=== PATIENT | male | born 1955 | race Caucasian/White ===

== ENCOUNTER 2024-05-26 08:54 | Inpatient (IN) ==
[2024-05-26] MEDS: SODIUM CHLORIDE 0.9% 500 ML IV ONE (09:48)
[2024-05-26] MEDS: dexAMETHasone**PF** 10 MG/ML VIAL IV ONE (09:48)
[2024-05-26] MEDS: KETOROLAC TROMETHAMINE 15 MG/ML VIAL IV ONE (09:48)
[2024-05-26] MEDS: MoRPHine SULFATE 4 MG/ML 1 ML CARP\\VIAL IV STA (09:49)
[2024-05-26] MEDS: ONDANSETRON INJ 2 MG/ML 2 ML VIAL IV STA (09:49)
--- NOTE | 2024-05-26 09:49 | Emergency Department Note ---
ED Provider Note History of Present Illness Chief Complaint: Hip Pain Stated Complaint: LEFT HIP PAIN Time Seen by Provider: 05/26/24 09:10 69-year-old male who presents to the emergency department for evaluation of lower back pain radiating through his left buttock and down the left leg to his calf. The patient reports that his pain started on Thursday. He saw his chiropractor yesterday without any relief of pain. The patient took ibuprofen 200 mg without relief. He also had some leftover tramadol from a dental procedure that also did not provide relief. The patient reports a history of chronic back issues. 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 He reports that healthcare receptionist usually will help with his back pain. The patient denies any recent injuries. He also denies any bladder/bowel incontinence, numbness of the inner thighs/pubic region or left foot drop. Patient denies any recent fevers or chills. The patient currently rates his discomfort a 9 out of 10. Home Medications Medication Instructions Recorded Confirmed Type ascorbic acid (vitamin C) 500 mg 500 mg PO DAILY 05/26/24 05/26/24 History tablet (Vitamin C) aspirin 81 mg tablet,delayed 81 mg PO DAILY 05/26/24 05/26/24 History release atenolol 50 mg-chlorthalidone 25 1 tab PO QAM 05/26/24 05/26/24 History mg tablet levothyroxine 88 mcg tablet 88 mcg PO DAILYBB 05/26/24 05/26/24 History losartan 100 mg tablet 100 mg PO QAM 05/26/24 05/26/24 History multivitamin 1 tab PO DAILY 05/26/24 05/26/24 History omeprazole 20 mg capsule,delayed 20 mg PO DAILYBB 05/26/24 05/26/24 History release vitamin E 268 mg (400 unit) capsule 268 mg PO DAILY 05/26/24 05/26/24 History Allergies Allergy/AdvReac Type Severity Reaction Status Date / Time No Known Allergies Allergy Unverified 05/26/24 10:50 Past Med/Surg History Problem List Bradycardia Hypertension Left lumbar radiculopathy Hypomagnesemia (Acute) Left lumbar radiculitis (Acute) Acute hyponatremia (Acute) Medical History No significant past medical history Surgical History No significant past surgical history Social History Smoking Status: Former smoker Hx Alcohol Use: Yes Alcohol type: beer Hx Substance Use: No Preferred Language: Stateless Communication Ability: Effective Flask Carrier Required: No marital status: Current Living Situation: Alone current occupational status: retired Feels Safe at Home: Yes Safety Concerns: Feels Safe At This Time Assistive Devices: None and Glasses Physical Exam Vital Signs Vital Signs - 24 hr 05/26/24 09:00 05/26/24 10:06 Temperature 36.5 C Temperature Source Oral Pulse Rate 58 L Pulse Rate [Right Finger] 53 L Pulse Rhythm [Right Finger] Regular Pulse Strength [Right Finger] Normal Respiratory Rate 20 12 Respiratory Effort / Characteristics Non-Labored Spontaneous Respiratory Depth Normal Normal Respiratory Pattern Regular Blood Pressure 158/73 H Blood Pressure [Right Arm] 135/71 Blood Pressure Mean 101 Blood Pressure Mean [Right Arm] 92 Pulse Oximetry 95 98 Oxygen Delivery Method Room Air Room Air Sepsis Recent Fever Within 48 Hours No Sepsis New/Unexplained Change in Mental Status N/A Sepsis Action Taken by Nursing No Action Required CONSTITUTIONAL: Healthy and well nourished. Patient appears in moderate discomfort. HEENT: No scleral icterus or conjunctival injection. NECK: Full active range of motion without discomfort. RESPIRATORY: Clear to auscultation bilaterally with no wheezing, crackles, rhonchi or stridor. CARDIOVASCULAR: Regular rate and rhythm with no murmurs, rubs or gallops. GASTROINTESTINAL: Bowel sounds present in all quadrants. Soft and nontender to palpation. MUSCULOSKELETAL: Patient has tenderness to palpation through the left lower lumbar region. Negative logroll of the hip. Positive straight leg raise with negative crossover exam. Ankle plantar/dorsiflexion strength is 5 out of 5 and symmetric bilaterally. Pedal pulses are intact. INTEGUMENTARY: No rash or other significant dermatologic conditions noted. HEMATOLOGIC: No ecchymosis or petechiae. PSYCHIATRIC: Positive affect. NEUROLOGIC: Left lower extremity is sensory intact with deep tendon reflexes 2+ and symmetric bilaterally. Course Course Patient history and physical exam were performed. Nurses notes were reviewed. Vital signs were reviewed. Given the patient's pain severity, I did recommend parenteral analgesics. IV access was established, and labs are drawn. The patient was administered a normal saline 500 cc bolus, and was also administered IV morphine, Toradol, Zofran and Decadron. An x-ray of the lumbar spine shows moderate degenerative changes without evidence for fractures or subluxations. There was a delay of approximately 40 minutes prior to getting x-rays, and upon reassessment, the patient did report significant reduction of his pain. Unfortunately, review of labs shows a sodium of 122. I did have our [employer]ruiter[employer] and pattern designer prior labs through [facility], showing that the patient has had a downtrending sodium over the past year and a half. He and had labs drawn almost 2 weeks ago with a sodium of 133, and the patient reports that his family doctor wanted him to have labs repeated again in 2 weeks. Remaining electrolytes are otherwise normal, including his potassium. Magnesium is slightly low at 1.4. An ECG was performed, showing PVCs without any ischemic changes, ST elevation or infarct. At this point, I explained to the patient my concern for his hyponatremia, and recommended that he be admitted for sodium repletion, and for further workup of the hyponatremia. The patient was initially resistant to the thought, but after explaining what hyponatremic and due to the body, he did agree to admission. Upon further questioning, the patient denies any recent vomiting, diarrhea, history of CHF, kidney or liver disease. A 2 view chest x-ray was also performed and was normal. The patient was administered magnesium sulfate for his hypomagnesemia. The case was then discussed with Dr. Long, ED attending physician, who agrees with admission. The case was then discussed with the [facility] hospitalist service, who has agreed with admission for further management. Please see their dictation for further treatment and final disposition. Administered Medications Aspirin (Aspirin 81 Mg Ectab) 81 mg PO DAILY [facility] Stop: 06/25/24 11:44 Last Admin: 05/26/24 12:32 Dose: 81 mg Documented By: CELINA Diclofenac Sodium (Diclofenac Sod 1% Gel 100 Gm Tube) 2 gm EXT TID ANIRUDH; Protocol Stop: 06/25/24 13:59 Last Admin: 05/26/24 14:47 Dose: Not Given Documented By: REY Sodium Chloride (Nss) 1,000 mls @ 80 mls/hr IV .[id number] ANIRUDH Stop: 06/25/24 11:44 Last Admin: 05/26/24 12:33 Dose: 80 mls/hr Documented By: CELINA Lidocaine (Lidocaine 5% 1 Patch) 1 patch TD QA ANIRUDH Stop: 06/25/24 11:44 Last Admin: 05/26/24 12:32 Dose: 1 patch Documented By: CELINA Losartan Potassium (Losartan Potassium 50 Mg Tab) 100 mg PO QAM ANIRUDH Stop: 06/25/24 11:44 Last Admin: 05/26/24 13:52 Dose: 100 mg Documented By: HIRAM Oxycodone HCl (Oxycodone Hcl Ir 5 Mg Tab (Immediate Release)) 5 mg PO Q4H PRN PRN Reason: Pain Stop: 06/09/24 11:39 Last Admin: 05/26/24 13:16 Dose: 5 mg Documented By: HIRAM Discontinued Medications Dexamethasone Sodium Phosphate (DexamethasonePf 10 Mg/Ml Vial) 10 mg IV NOW ONE Stop: 05/26/24 09:33 Last Admin: 05/26/24 09:48 Dose: 10 mg Documented By: CELINA Hydromorphone HCl (Hydromorphone Inj 0.5 Mg/0.5 Ml Syr) 0.5 mg IV NOW STA Stop: 05/26/24 12:06 Last Admin: 05/26/24 12:33 Dose: 0.5 mg Documented By: CELINA Sodium Chloride (Nss) 500 mls @ 999 mls/hr IV .Q31M ONE Stop: 05/26/24 10:02 Last Infusion: 05/26/24 10:18 Dose: Infused Documented By: Admin: 05/26/24 09:48 Dose: 999 mls/hr Documented By: CELINA Magnesium Sulfate/Dextrose (Magnesium Sulfate / D5w) 1 gm in 100 mls @ 200 mls/hr IV Q30M [facility] Stop: 05/26/24 11:53 Last Infusion: 05/26/24 12:27 Dose: Infused Documented By: Admin: 05/26/24 11:57 Dose: 200 mls/hr Documented By: Infusion: 05/26/24 11:57 Dose: Infused Documented By: Admin: 05/26/24 11:01 Dose: 200 mls/hr Documented By: CELINA Ketorolac Tromethamine (Ketorolac Tromethamine 15 Mg/Ml Vial) 10 mg IV NOW ONE Stop: 05/26/24 09:33 Last Admin: 05/26/24 09:48 Dose: 10 mg Documented By: CELINA Morphine Sulfate (Morphine Sulfate 4 Mg/Ml 1 Ml Carp\Vial) 4 mg IV NOW STA Stop: 05/26/24 09:33 Last Admin: 05/26/24 09:49 Dose: 4 mg Documented By: CELINA Ondansetron HCl (Ondansetron Inj 2 Mg/Ml 2 Ml Vial) 4 mg IV NOW STA Stop: 05/26/24 09:33 Last Admin: 05/26/24 09:49 Dose: 4 mg Documented By: CELINA Medical Decision Making Medical Records Attestation: I reviewed the patient's medical records. Home Medications was personally reviewed by me Laboratory Data Attestation: I reviewed the patient's lab results. 05/26/24 09:40 05/26/24 11:53 Lab Results 05/26/24 Range/Units 09:40 WBC 7.50 (4.8-10.8) K/ul RBC 4.56 L (4.70-6.10) M/uL Hgb 14.4 (14.0-18.0) g/dl Hct 38.7 L (42.0-52.0) % MCV 84.9 (80.0-100.0) fL MCH 31.6 (25.0-34.0) pg MCHC 37.2 H (32.0-36.0) g/dL RDW Std Deviation 35.5 L (36.4-46.3) fL RDW Coeff of Rajesh 11.5 (11.5-14.5) % Plt Count 209 (130-400) K/uL MPV 8.9 L (9.4-12.4) fL Immature Gran % (Auto) 0.7 % Neut % (Auto) 81.7 % Lymph % (Auto) 12.1 % Chase % (Auto) 4.9 % Eos % (Auto) 0.3 % Baso % (Auto) 0.3 % Neut # (Auto) 6.13 (1.40-6.50) K/uL Lymph # (Auto) 0.91 L (1.20-3.40) K/uL Chase # (Auto) 0.37 (0.11-0.59) K/uL Eos # (Auto) 0.02 (0.00-0.50) K/uL Baso # (Auto) 0.02 (0.00-0.20) K/uL Immature Gran # (Auto) 0.05 (0.01-0.20) K/uL Sodium 122 L (136-145) mmol/L Potassium 3.5 (3.5-5.1) mmol/L Chloride 87 L (98-107) mmol/L Carbon Dioxide 25 (21-32) mmol/L Anion Gap 10 (3-11) BUN 11 (6-23) mg/dl Creatinine 0.67 (0.6-1.4) mg/dl Est Cr Clr Drug Dosing 100.1 ml/min Est GFR ( Amer) 112.0 ml/min Est GFR (Non-Af Amer) 96.7 ml/min BUN/Creatinine Ratio 16.4 (10-20) Glucose 137 H (70-99(Fasting)) mg/dl Calcium 9.2 (8.6-10.3) mg/dl Phosphorus 2.9 (2.5-4.9) mg/dl Magnesium 1.4 L (1.7-2.4) mg/dl Total Bilirubin 1.0 (0.2-1.0) mg/dl AST 21 (13-39) U/L ALT 15 (7-52) U/L Alkaline Phosphatase 48 (34-104) U/L B-Natriuretic Peptide 113 H (0-100) pg/ml Total Protein 7.4 (6.0-8.3) gm/dl Albumin 4.2 (3.4-5.0) gm/dl Globulin 3.2 (2.5-4.0) gm/dl Albumin/Globulin Ratio 1.3 (0.9-2) Imaging Data Attestation: I personally reviewed and interpreted this imaging study as follows: My Impression: My interpretation of lumbar spine x-ray shows moderate degenerative changes without evidence for fractures or subluxations. My interpretation of the two-view chest x-ray does not show any pneumonia, pneumothorax or cardiomegaly. Radiologist reports were also reviewed with concurrence. Radiologist's Impression: Lumbar Spine X-Ray 05/26/24 09:33 LUMBAR SPINE 5 VIEWS CLINICAL HISTORY: Lumbar radiculopathy. FINDINGS: 5 views of the lumbar spine are obtained. No prior studies are available for comparison at the time of dictation. The skeletal structures are osteopenic. There is no radiographic evidence of fracture or malalignment. Vertebral body height and alignment are maintained. The transverse and spinous processes are intact. Anterior and lateral marginal osteophytes are seen throughout. There is no radiographic evidence of spondylolysis. There is moderate disc space narrowing at L5-S1. The remaining disc spaces appear maintained. Mild facet arthropathy is noted in the lower lumbar region. The visualized bony pelvis appears intact. There is a nonobstructed abdominal bowel gas pattern. Moderate fecal retention is seen throughout the colon. IMPRESSION: No acute bony abnormality is identified involving the lumbar spine. ACT 112: Negative or not required by law. Electronically signed by: Liang Au M.D. 05/26/2024 10:54 AM Chest X-Ray 05/26/24 10:26 XR chest 2V PA/lateral CLINICAL HISTORY: Hyponatremia TECHNIQUE: 2 views of the chest were obtained. Comparison: None available at the time of this dictation. FINDINGS: No lines and tubes are seen. The cardiomediastinal silhouette is normal. The lungs are clear. No evidence of pleural effusion or pneumothorax. IMPRESSION: No acute chest disease. ACT 112: Negative or not required by law. Electronically signed by: James Lamar M.D. 05/26/2024 10:54 AM ECG Data Attestation: I personally reviewed and interpreted this ECG as follows: Indication: + other (Hyponatremia) Rate (beats per minute): 64 Rhythm: + normal sinus ECG Intervals/blocks: + Normal QRS, + Normal QT and + Normal VA ECG [place]: + Normal ECG ST segments: + Normal ST segments ECG Findings: + PVCs MDM Narrative See ED Course section for further details of today's visit. The patient presents the emergency department with classic symptoms of left lumbar radiculitis. X-rays of the lumbar spine does show moderate changes, consistent with his current presentation. In order to provide adequate pain control, I did recommend parenteral administration. I also ordered laboratory studies, and on review, shows severe hyponatremia of 122. It is noted over the past 4-1/2 months that the patient has had a downtrending sodium level. Exact etiology for his hyponatremia is uncertain at this time. It is noted that the patient is asymptomatic other than his lumbar radicular symptoms. An ECG does show PVCs without any other evidence for ischemia or infarct. I did advise the patient that he would need slow sodium repletion, and recommended admission to further assess his hyponatremia. The patient was also hypomagnesemic, and was administered magnesium sulfate while in the emergency department. The patient did report adequate pain control for his lumbar radicular pain. Impression Acute hyponatremia, Left lumbar radiculitis, Hypomagnesemia Discharge Plan Visit Data Chief Complaint: Hip Pain Stated Complaint: LEFT HIP PAIN ED Provider: Sade Long ED Midlevel Provider: Aubrey Rausch Discharge Problem: Acute hyponatremia, Left lumbar radiculitis, Hypomagnesemia Discharge Instructions Interventions: ED Discharge Assessment Last Done: 05/26/24 13:35
[2024-05-26 10:03] LABS: Basophils # (auto) 0.02 K/uL (0.00-0.20); Basophils % (auto) 0.3 %; Eosinophils # (auto) 0.02 K/uL (0.00-0.50); Eosinophils % (auto) 0.3 %; Hematocrit (blood only) 38.7 % (42.0-52.0); Hemoglobin 14.4 g/dl (14.0-18.0); Immature Granulocytes # (auto) 0.05 K/uL (0.01-0.20); Immature Granulocytes % (auto) 0.7 %; Lymphocytes # (auto) 0.91 K/uL (1.20-3.40); Lymphocytes % (auto) 12.1 %; Mean Corpuscular Hemoglobin 31.6 pg (25.0-34.0); Mean Corpuscular Hgb Conc 37.2 g/dL (32.0-36.0); Mean Corpuscular Volume 84.9 fL (80.0-100.0); Mean Platelet Volume 8.9 fL (9.4-12.4); Monocytes # (auto) 0.37 K/uL (0.11-0.59); Monocytes % (auto) 4.9 %; Neutrophils # (auto) 6.13 K/uL (1.40-6.50); Neutrophils % (auto) 81.7 %; Platelet Count 209 K/uL (130-400); RDW Coefficient of Variation 11.5 % (11.5-14.5); RDW Standard Deviation 35.5 fL (36.4-46.3); Red Blood Count 4.56 M/uL (4.70-6.10)
[2024-05-26 10:16] LABS: Albumin Globulin Ratio 1.3 (0.9-2); Albumin Level 4.2 gm/dl (3.4-5.0); BUN Creatinine Ratio 16.4 (10-20); Calcium 9.2 mg/dl (8.6-10.3); Creatinine Clr Calc Pharmacy 100.1 ml/min; Est GFR (Non-African American) 96.7 ml/min; Globulin 3.2 gm/dl (2.5-4.0); Potassium 3.5 mmol/L (3.5-5.1); Total Protein 7.4 gm/dl (6.0-8.3)
[2024-05-26 10:46] LABS: Magnesium 1.4 mg/dl (1.7-2.4); Phosphorus 2.9 mg/dl (2.5-4.9)
--- NOTE | 2024-05-26 10:55 | XRay Report ---
XR chest 2V PA/lateral CLINICAL HISTORY: Hyponatremia TECHNIQUE: 2 views of the chest were obtained. Comparison: None available at the time of this dictation. FINDINGS: No lines and tubes are seen. The cardiomediastinal silhouette is normal. The lungs are clear. No evid ence of pleural effusion or pneumothorax. IMPRESSION: No acute chest disease. ACT 112: Negative or not required by law. Electronically signed by: James Lamar M.D. 05/26/2024 10:54 AM
--- NOTE | 2024-05-26 10:56 | XRay Report ---
LUMBAR SPINE 5 VIEWS CLINICAL HISTORY: Lumbar radiculopathy. FINDINGS: 5 views of the lumbar spine are obtained. No prior studies are available for comparison at the time of dictation. The skeletal structures are osteopenic. There is no radiographic evidence of fracture or malalignment. Vertebral body height and alignment are maintained. The transverse and spin ous processes are intact. Anterior and lateral marginal osteophytes are seen throughout. There is no radiographic evidence of spondylolysis. There is moderate disc space narrowing at L5-S1. The remainin g disc spaces appear maintained. Mild facet arthropathy is noted in the lower lumbar region. The visu alized bony pelvis appears intact. There is a nonobstructed abdominal bowel gas pattern. Moderate fec al retention is seen throughout the colon. IMPRESSION: No acute bony abnormality is identified involving the lumbar spine. ACT 112: Negative or not required by law. Electronically signed by: Liang Au M.D. 05/26/2024 10:54 AM
[2024-05-26] MEDS: MAGNESIUM SULFATE / D5W 1 GM/100 ML BAG IV SCH (11:01)
--- NOTE | 2024-05-26 11:04 | Electrocardiogram Report ---
Test Reason : Blood Pressure : / mmHG Vent. Rate : 064 BPM Atrial Rate : 064 BPM P-R Int : 174 ms QRS Dur : 110 ms QT Int : 462 ms P-R-T Axes : 077 071 055 degrees QTc Int : 476 ms Sinus rhythm with frequent Premature ventricular complexes Otherwise normal ECG No previous ECGs available Confirmed by Dustin Wynne ([id number]) on 05/26/2024 11:03:32 AM Referred By: REFERRED SELF Confirmed By:Dustin Wynne
--- NOTE | 2024-05-26 11:56 | History & Physical Report ---
Date of Service May 26, 2024 Assessment & Plan (1) Acute hyponatremia: (2) Hypomagnesemia: (3) Left lumbar radiculopathy: (4) Hypertension: (5) Bradycardia: Admission and Anticipated Discharge Date Admission Date: Hyponatremia- suspected due to chlorthalidone and may be some component of SIADH due to nausea from pain. Sodium 133 on 05/12, now 122. Will get serum osmolality, urine sodium, urine osmolality. hold chlorthalidone. Continue gentle ivf. Goal correction up to 128-130 over next 24 hrs. will check serum sodium q6hr to ensure appropriate correction. If worsening, will consult nephro. Might need discontinuation of chlorthalidone at discharge. Hypomagnesemia- repleted, recheck in am Left lumbar radiculopathy- No cauda equina symptoms/red flag signs. Xray did not show acute changes. Improved with medications in ED. Will have lidoderm patch, voltaren gel, heat pad, oxy and toradol prn. PT OT eval. If worsening, will need MRI LS spine for better evaluation. HTN- continue losartan. Hold chlorthalidone due to hyponatremia. Hold atenolol due to bradycardia. Bradycardia- Did not take atenolol today yet and HR in 50s. Will hold today and monitor on tele. Resume in am at lower dose with hold parameters. Hypothyroidism- continue synthroid. Recent TSH 4, T4 normal. Alcohol use- Drinks 3-4 keystone beer light daily. Declines withdrawal symptoms. Monitor. DVT ppx- sc lovenox Dispo- Admit to PCU on tele Full code Time spent- 75 mins History of Present Illness Chief Complaint: Left hip pain Primary Care Provider: Maria Teresa White MD 69 year old male with h/o HTN who presented to the ED for evaluation of left back pain radiating to left lower extremity. 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 This time pain started on Thursday and progressively got worse. He saw his chiropractor yesterday, initially felt better and got worse again. He took ibuprofen 400 mg and 800 mg followed by tramadol 50 mg x2 since then but no relief with pain. He had nausea and an episode of vomiting yesterday due to pain. He came to the ED for evaluation. He was given multiple pain medications in ED with improvement in pain. Work up showed sodium of 122 for which hospitalist service was consulted. His last BMP 05/12 showed sodium of 133 and TSH of 4. Currently denies N/V, fever, chills, chest pain, SOB. He feels fine. States he drinks 3-4 light beers daily but strongly denies alcohol withdrawal sy mptoms. Quit smoking 4 years back. Allergies Allergy/AdvReac Type Severity Reaction Status Date / Time No Known Allergies Allergy Unverified 05/26/24 10:50 Home Medications Medication Instructions Recorded Confirmed Type ascorbic acid (vitamin C) 500 mg 500 mg PO DAILY 05/26/24 05/26/24 History tablet (Vitamin C) aspirin 81 mg tablet,delayed 81 mg PO DAILY 05/26/24 05/26/24 History release atenolol 50 mg-chlorthalidone 25 1 tab PO QAM 05/26/24 05/26/24 History mg tablet levothyroxine 88 mcg tablet 88 mcg PO DAILYBB 05/26/24 05/26/24 History losartan 100 mg tablet 100 mg PO QAM 05/26/24 05/26/24 History multivitamin 1 tab PO DAILY 05/26/24 05/26/24 History omeprazole 20 mg capsule,delayed 20 mg PO DAILYBB 05/26/24 05/26/24 History release vitamin E 268 mg (400 unit) capsule 268 mg PO DAILY 05/26/24 05/26/24 History Past Med/Surg History Problem List (Updated 05/26/24 @ 11:58 by Stephan Connell MD) Bradycardia Hypertension Left lumbar radiculopathy Hypomagnesemia (Acute) Left lumbar radiculitis (Acute) Acute hyponatremia (Acute) Medical History No significant past medical history Surgical History No significant past surgical history Social History Smoking Status: Former smoker marital status: Current Living Situation: Spouse current occupational status: retired Feels Safe at Home: Yes Review of Systems Review of Systems: All systems reviewed & are unremarkable except as noted in Subjective Physical Exam Physical Exam: General: Sitting comfortably in bed, not in distress, on room air HEENT: EOMI, HANS, MMM Chest: Clear breath sounds bilaterally, no wheezes or crackles CVS: Bradycardic, normal heart sounds, no murmur Abdomen: Soft, non tender, not distended, normal bowel sounds Neuro: Awake, alert, oriented, conversing well, grossly intact Extremities: No cyanosis, clubbing or edema MSK: No tenderness on palpation of back, some tenderness in left buttock Results & Data Results & Data Vital Signs (Past 12 Hours) Vital Signs Temp Pulse Pulse Resp BP BP Pulse Ox 05/26/24 10:06 53 L 12 135/71 98 05/26/24 09:00 36.5 C 58 L 20 158/73 H 95 O2 Del Method 05/26/24 10:06 Room Air 05/26/24 09:00 Room Air Laboratory Results Short CBC 05/26/24 Range/Units 09:40 WBC 7.50 (4.8-10.8) K/ul Hgb 14.4 (14.0-18.0) g/dl Hct 38.7 L (42.0-52.0) % Plt Count 209 (130-400) K/uL BMP 05/26/24 09:40 Sodium 122 L Potassium 3.5 Chloride 87 L Carbon Dioxide 25 BUN 11 Creatinine 0.67 Glucose 137 H Calcium 9.2 Liver Function 05/26/24 Range/Units 09:40 Total Bilirubin 1.0 (0.2-1.0) mg/dl AST 21 (13-39) U/L ALT 15 (7-52) U/L Alkaline Phosphatase 48 (34-104) U/L Albumin 4.2 (3.4-5.0) gm/dl Diagnostic Findings Lumbar Spine X-Ray 05/26/24 09:33 LUMBAR SPINE 5 VIEWS CLINICAL HISTORY: Lumbar radiculopathy. FINDINGS: 5 views of the lumbar spine are obtained. No prior studies are available for comparison at the time of dictation. The skeletal structures are osteopenic. There is no radiographic evidence of fracture or malalignment. Vertebral body height and alignment are maintained. The transverse and spinous processes are intact. Anterior and lateral marginal osteophytes are seen throughout. There is no radiographic evidence of spondylolysis. There is moderate disc space narrowing at L5-S1. The remaining disc spaces appear maintained. Mild facet arthropathy is noted in the lower lumbar region. The visualized bony pelvis appears intact. There is a nonobstructed abdominal bowel gas pattern. Moderate fecal retention is seen throughout the colon. IMPRESSION: No acute bony abnormality is identified involving the lumbar spine. ACT 112: Negative or not required by law. Electronically signed by: Liang Au M.D. 05/26/2024 10:54 AM Chest X-Ray 05/26/24 10:26 XR chest 2V PA/lateral CLINICAL HISTORY: Hyponatremia TECHNIQUE: 2 views of the chest were obtained. Comparison: None available at the time of this dictation. FINDINGS: No lines and tubes are seen. The cardiomediastinal silhouette is normal. The lungs are clear. No evidence of pleural effusion or pneumothorax. IMPRESSION: No acute chest disease. ACT 112: Negative or not required by law. Electronically signed by: James Lamar M.D. 05/26/2024 10:54 AM
[2024-05-26 12:28] LABS: BUN Creatinine Ratio 15.4 (10-20); Calcium 8.8 mg/dl (8.6-10.3); Creatinine Clr Calc Pharmacy 103.2 ml/min; Est GFR (African American) 113.4 ml/min; Est GFR (Non-African American) 97.9 ml/min; Potassium 3.8 mmol/L (3.5-5.1)
[2024-05-26] MEDS: LIDOCAINE 5% 1 PATCH TD SCH (12:32)
[2024-05-26] MEDS: ASPIRIN 81 MG ECTAB PO SCH (12:32)
[2024-05-26] MEDS: HYDROmorphone INJ 0.5 MG/0.5 ML SYR IV STA ×2 (12:33→23:58)
[2024-05-26] MEDS: SODIUM CHLORIDE 0.9% 1,000 ML IV SCH (12:33)
[2024-05-26] MEDS: oxyCODONE HCL IR 5 MG TAB (IMMEDIATE RELEASE) PO PRN (13:16)
[2024-05-26] MEDS: LOSARTAN POTASSIUM 50 MG TAB PO SCH (13:52)
[2024-05-26 14:29] LABS: Albumin Level 4.2 gm/dl (3.4-5.0); Phosphorus 2.7 mg/dl (2.5-4.9)
[2024-05-26] MEDS: DICLOFENAC SOD 1% GEL 100 GM TUBE EXT SCH (14:47)
[2024-05-26] MEDS: KETOROLAC TROMETHAMINE 15 MG/ML VIAL IV PRN (17:14)
[2024-05-26 17:30] LABS: Appearance Urine Clear (Clear); Bacteria Urine Automated None Seen (None Seen); Bilirubin Urine Negative (Negative); Blood Urine Negative (Negative); Cast Urine Automated 0-2 /lpf (0-2); Color Urine Yellow; Epithelial Cell Urine Auto 0-2 /hpf (0-2); Glucose Urine UA Negative (Negative); Ketones Urine 3+ (Negative); Leukocyte Esterase Urine Negative (Negative); Nitrite Urine Negative (Negative); Protein Urine Trace (Negative); RBC Urine Automated 0-2 /hpf (0-2); Urobilinogen Urine Negative (Negative); WBC Urine Automated 0-5 /hpf (0-5); pH Urine 6.5 (4.5-7.5)
[2024-05-26 23:07] LABS: Albumin Level 3.8 gm/dl (3.4-5.0); Calcium 8.4 mg/dl (8.6-10.3)
[2024-05-26 23:13] LABS: BUN Creatinine Ratio 16.2 (10-20); Creatinine Clr Calc Pharmacy 86.4 ml/min; Est GFR (African American) 107.6 ml/min; Est GFR (Non-African American) 92.8 ml/min; Phosphorus 3.3 mg/dl (2.5-4.9)
--- OUTSIDE RECORDS SUMMARY | 2024-05-26 23:42 | External Medical Summary | Summary of Care ---
Author Name Unknown Organization [facility] Address [address] [facility] [address] Phone [phone] Care Team Providers Care Flower Planter Name Role Phone Maria Teresa White MD Primary Care Provide r Reason for Referral * Evaluate & Treat - Unlimited Visits (Within 10 days (routine)) - Authorized Specialty Diagnoses / Procedures Referred By Jordi guillermo Referred To Contact Podiatry Diagnoses Callus of foot Maria Teresa White MD [address] [place] [address] [place] [address] Referral ID Status Reason Start Date Expiration Date Visits Requested Visits Authorized [id number] Authorized Specialty Services Required 02/17/[phone] Question Answer Referral Priority Within 10 days (routine) Where should this appointment be scheduled? [facility] Which condition are you referring this patient for? General Podiatry/Other Comments calluses Reason for Visit * Reason Onset Date Comments Referral 02/17/2024 Encounter Details Date Type Department Care Team (Late st Contact Info) Description 02/17/2024 Telephone Family Medicine [address] [place] [id number] Maria Teresa White MD [address] [place] [address] [place] [address] Referral Allergies No known active allergiesdocumented as of this encounter (statuses as of 05/18/2024) Medications Medication Sig Dispensed Refills Start Date End Date Status MULTIVITAMIN PO TABS daily 0 10/10/2005 Acti ve ASPIRIN 81 MG PO TABS 1 TABLET DAILY 0 10/10/2005 Active VITAMIN C 500 MG PO TABS 1 TABLET DAILY 0 10/10/2005 Active VITAMIN E 400 UNIT PO TABS daily 0 10/10/2005 Active ibuprofen (MOTRIN) 200 MG Tablet Take 1 Tablet by mouth in the morning and 1 Tablet before bedtime. Active triamcinolone acetonide (ARISTOCORT) 0.1 % ointmentIndications:C ontact dermatitis, unspecified contact dermatitis type, unspecified trigger,Xerosis cutis Apply 2x daily to rash (or more if itchy) until resolved and then when flaring 80 g 03/30/2017 Active Vardenafil HCl 20 MG Oral TabletIndications:Imp otence of organic origin Take 1 Tablet by mouth daily as needed for Erectile Dysfunction. As directed. 90 Tablet 1 01/12/2023 Active Levothyroxine Sodium 88 MCG Oral Tablet (Levoxyl)Indications: Acquired hypothyroidism take 1 tablet by mouth daily AT LEAST 30 MINUTES PRIOR TO BRERAKFAST OR OTHER MEDICINE 90 Tablet 3 06/02/2023 Active Losartan Potassium 100 MG Oral Tablet (Cozaar)Indications:H TN, goal below 140/90 Take 1 Tablet by mouth in the morning. 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 ADVANCE DIRECTIVE INFORMATION 08/08/2005 Overview: No, Advance Directive brochure given to patient at prior appointment. Hypothyroidism 01/25/2003 documented as of this encounter (statuses as of 05/18/2024) Resolved Problems Problem Noted Date Diagnosed Date Resolved Date Aneurysm of ascending aorta without rupture 12/11/2022 05/12/2023 Mild aortic regurgitation 11/05/2022 Mild mitral regurgitation 11/05/2022 Myalgia 09/13/2013 11/19/2015 ENLARGED THORACIC AORTA 01/21/2007 11/0 11/2012 Elbow enthesopathy 10/13/2001 5 SKIN SENSATION DISTURB 11/19 Precordial pain 09/13/2012 BENIGN HYPERTENSION 10/05/20 09 Overview: Modified per HTN Taxonomy. BCC (basal cell carcinoma of skin) 12/24/2016 documented as of this encounter (statuses as of 05/18/2024) Immunizations Name Administration Dates Next Due COVID-19 mRNA, LNP-s, No Pre serve, 2-Dose Series (Pfizer) 09/02/2021,01/08/2021,12/18/2020 Pneumococcal Conjugate Vacc, 13 Valent (Prevnar) 06/14/2018 Pneumococcal Polysaccharide PPV23 (Pneumovax) 06/17/2019 Season Influenza, Quad, PF, Adjuvanted, 65+ Yrs, IM (FLUAD) 02/01/2021 Seasonal Influenza, PF, 6 M & above, IM , (FluLaval or Fluzone) 01/10/2019,12/14/2017 Seasonal Influenza, Quadriva lent Hd (Fluzone Hd) 11/11/2023,11/05/2022,09/13/2021 Seasonal Influenza, Quadriva lent, No Preserve, IM 11/19/2015 Seasonal Influenza, Split, I IV3, With Preserve, Inj 10/23/2014,09/13/2013,09/13/2012,08/28,08/29/2010,08/23/2009 Seasonal Influenza, Trivalen t, Adjuvanted, 65+ yrs 12/26/2019 TDAP (age 10 and older)(Boostrix) 01/10/2019 TDAP, Age 7 and older, IM (Adacel) 08/24/2008 Varicella Zoster Vaccine (Adult) 12/18/2017 Zoster Vaccine Recombinant (Shingrix) 03/02/2020 ,12/26/2019 documented as of this encounter Social History Tobacco Use Types Packs/Day Years Used Date Smoking Tobacco: Former Cigarettes Q uit: 01/28/1983 Smokeless Tobacco: Never Comments:2 pk/yr for 13 year s Alcohol Use Standard Drinks/Week Comments Yes 0 (1 standard drink = 0.6 oz pur e alcohol) 3 BEERS /DAY PHQ-2 Answer Date Recorded PHQ Adult Total Score 0 05/12/2023 Sex and Gender Information Value Date Recorded Sex Assigned at Not on file Gender Identity Not on file Sexual Orientation Not on file Job Start Date Occupation Industry Not on file Not on file Not on file documented as of this encounter Miscellaneous Notes * Telephone Encounter - Maria Teresa White MD - 02/17/2024 11:45 AM EDT Signed * Telephone Encounter - Radha Taylor OSA - 02/17/2024 9:57 AM EDT Due to new Medicare guidelines for Podiatry Routine Footcare & Mycotic Nail visits, we will need documented medical necessity for this patient's upcoming appointment on 03/21/24. Moving forward, a new referral will need to be placed every 6 months and must include the below information for Medicare to pay for services. Can you please assist with placing a new referral with the below outlined? 1) Can Patient perform routine footcare without assistance? (Y/N) 2)Does patient have a chronic condition? (Y/N) 3) Has patient been seen in the past 6 months? (Y/N) Please see the below link that will outline the appropriate/approved DX codes. Article - Billing and Coding: Routine Foot Care (G50211) (cms.gov) Thank you in advance. documented in this encounter Plan of Treatment Upcoming Encounters Date Type Department Care Team (Late st Contact Info) Description 06/06/2024 7:00 AM EDT Imaging Radiology [facility] [address] [facility] [place] [address] 06/16/2024 3:00 PM EDT Telemedicine Cardiothoracic Surg [facility] [address] [place] [address] Stevie Mcallister MD [address] [place] [address] 06/22/2024 8:40 AM EDT Office Visit Podiatry [facility] [address] [facility] [place] [address] Malathi Andres DPM [address] [place] [address] 06/22/2024 1:20 PM EDT Office Visit Dermatology [address] [place] [address] Katie Mckeon PA-C [address] [place] [address] [place] [address] 11/14/2024 8:00 AM EST Office Visit Family Medicine [address] [place] [phone] Rima Dewitt PA-C [address] [place] [address] [place] [address] Scheduled Procedures Name Priority Associated Diagnoses Date/Ti me COLONOSCOPY FLEXIBLE PROXIMA L DIAGNOSTIC Recall Encounter for screening colonoscopy Scheduled Referrals Name Type Priority Associated Diagnoses Orde r Schedule PODIATRY REFERRAL OP Referral Within 10 days (routine) Callus of foot Ordered: 02/17/2024 Health Maintenance Due Date Last Done Comments Cologuard 1998 Sigmoidoscopy 1998 Fecal Occult Blood Test 08/13/2007 08/13/2006 COVID-19 Vaccine ( season) 2023 09/02/2021, 01/08/2021, 12/18/2020 Depression Screening 05/12/2024 05/12/2023 Albumin/Creatinine Ratio 05/05/2025 05/05/2022 GFR 05/13/2025 05/13/2024, 04/30, 01/12/2023, Additional history exists TSH 05/13/2025 05/13/2024, 04/30, 05/05/2022, Additional history exists Colonoscopy 05/18/2027 05/18/2017, 04/30, 03/06/2014, Additional history exists Colorectal Cancer Screening 05/18/2027 DTaP,Tdap,and Td Vaccines (3 - Td or Tdap) 01/10/2029 01/10/2019, 08/24/2008 Lipid Panel 05/13/2029 05/13/2024, 04/30, 05/05/2022, Additional history exists AAA Screening Completed 01/18/2019 Pneumococcal Vaccine: 65+ Years Completed 06/17/2019, 06/14/2018 Zoster Vaccines Completed 03/02/2020, 12/01, 12/18/2017 Influenza Vaccine (FLU shot) Completed , 11/05/2022, 09/13/2021, Additional history exists GARDASIL-HPV IMMUNIZATION SERIES Aged Out No longer eligible based on patient's age to complete this topic Hepatitis B Aged Out No longer eligi ble based on patient's age to complete this topic MENINGOCOCCAL (MENACTRA/MENVEO) Aged Out No longer eligible based on patient's age to complete this topic documented as of this encounter Medical Devices Not on filedocumented as of this encounter Visit Diagnoses Diagnosis Callus of foot- Primary Corns and callosities documented in this encounter Care Teams Flower Planter Relationship Specialty Start Date End Date Maria Teresa White MD [address] [place] [address] [place] [id number] PCP - General Family Medicine 10/28/14 documented as of this encounter
--- OUTSIDE RECORDS SUMMARY | 2024-05-26 23:42 | External Medical Summary ---
Author Name Unknown Address Unknown Organization [id number]:[facility] [place] - [address] [facility] [place] [address] Laboratory Report Ordering Provider Test Date Status MARIA L TRUJILLO 05/13/2024 15:41:09 Final Observation Date Value Abnormality Reference (Units ) Status Triglyceride 05/13/2024 15:41:09 149 <=174 ( mg/dL) Final Triglyceride Reference Range s (mg/dL):
<150 Acceptable
150-174 Borderline high
175-499 High
>=500 Very high Cholesterol 05/13/2024 15:41:09 169 <200 (mg /dL) Final Total Cholesterol Reference Ranges (mg/dL):
<200 Desirable
200-239 Borderline high
>=240 High HDL 05/13/2024 15:41:09 56 >39 (mg/dL ) Final HDL Cholesterol Reference Ra nges (mg/dL):
>=60 High (Desirable)
<50 Low (Undesirable) For Females
<40 Low (Undesirable) For Males NON-HDL CHOLESTEROL 05/13/2024 15:41:09 113 <=159 (mg/dL) Final Non-HDL Cholesterol Referenc e Range (mg/dL):
<100 Target level for high risk ASCVD patient
<130 Optimal for general population
130-159 Near optimal for general population
160-189 Borderline High
190-219 High
>=220 Very High LDL, (calculated) 05/13/2024 15:41:09 83 <= 129 (mg/dL) Final LDL Cholesterol Reference Ra nges (mg/dL):
<70 Target level for high risk ASCVD patient
<100 Optimal for general population
100-129 Near optimal for general population
130-159 Borderline high
160-189 High
>=190 Very high Performing Location [facility] [place] - [address] [facility] [address]
--- OUTSIDE RECORDS SUMMARY | 2024-05-26 23:42 | External Medical Summary ---
Author Name Unknown Address Unknown Organization [id number]:[facility] - [address] [place] [address] Laboratory Report Ordering Provider Test Date Status DANIELAYOELMARIA L 05/13/2024 15:41:09 Final Observation Date Value Abnormality Reference (Units ) Status BUN 05/13/2024 15:41:09 17 6-20 (mg/dL) Final Creatinine 05/13/2024 15:41:09 0.9 0.6-1.2 (mg/dL) Final Glomerular filtration rate/1.73 sq M.predicted [Volume Rate/Area] in Serum, Plasma or Blood by Creatinine-based formula (CKD-EPI) 05/13/2024 15:41:09 >90 >=60 (mL/min) Final eGFR is calculated based on the CKD-EPI 2020 equation Sodium 05/13/2024 15:41:09 133 Below low normal 135 -146 (mmol/L) Final Potassium 05/13/2024 15:41:09 3.9 3.5-5.1 (m mol/L) Final Cl 05/13/2024 15:41:09 97 Below low normal 98- 107 (mmol/L) Final CO2 05/13/2024 15:41:09 24 22-32 (mmo l/L) Final Anion gap 05/13/2024 15:41:09 12 7-15 (mmol /L) Final Glucose 05/13/2024 15:41:09 95 70-120 (mg /dL) Final Calcium 05/13/2024 15:41:09 9.5 8.4-10.2 ( mg/dL) Final Performing Location [facility] - [address] [place] [address]
--- OUTSIDE RECORDS SUMMARY | 2024-05-26 23:42 | External Medical Summary ---
Author Name Unknown Address Unknown Organization K01:[facility] - [address] [place] [address] Laboratory Report Ordering Provider Test Date Status MARIA L TRUJILLO 05/13/2024 15:41:09 Final Observation Date Value Abnormality Reference (Units ) Status T4, Free 05/13/2024 15:41:09 1.7 0.9-1.7 (n g/dL) Final Performing Location [facility] - [address] [place] [address]
--- OUTSIDE RECORDS SUMMARY | 2024-05-26 23:42 | External Medical Summary | Summary of Care ---
Author Name Unknown Organization [facility] Address [address] [facility] [place] [address] Phone [phone] Care Team Providers Care Conference Specialist Name Role Phone Maria Teresa White MD Primary Care Provide r Reason for Visit * Reason Comments eRx-Medication Refill Encounter Details Date Type Department Care Team (Late st Contact Info) Description 04/18/2024 Refill Family Medicine [address] [place] [phone] Maria Teresa White MD [address] [place] [address] [place] [address] Encounter for long-term (current) use of medications*; HTN, goal below 140/90 Allergies No known active allergiesdocumented as of this encounter (statuses as of 04/28/2024) Medications Medication Sig Dispensed Refills Start Date End Date Status MULTIVITAMIN PO TABS daily 0 5 Active ASPIRIN 81 MG PO TABS 1 TABLET DAILY 0 5 Active VITAMIN C 500 MG PO TABS 1 TABLET DAILY 0 5 Active VITAMIN E 400 UNIT PO TABS daily 0 5 Active ibuprofen (MOTRIN) 200 MG Tablet Take 1 Tablet by mouth in the morning and 1 Tablet before bedtime. Active triamcinolone acetonide (ARISTOCORT) 0.1 % ointmentIndications :Contact dermatitis, unspecified contact dermatitis type, unspecified trigger,Xerosis cutis Apply 2x daily to rash (or more if itchy) until resolved and then when flaring 80 g 7 Active Vardenafil HCl 20 MG Oral TabletIndications:I mpotence of organic origin Take 1 Tablet by mouth daily as needed for Erectile Dysfunction. As directed. 90 Tablet 1 3 Active Levothyroxine Sodium 88 MCG Oral Tablet (Levoxyl)Indication s:Acquired hypothyroidism take 1 tablet by mouth daily AT LEAST 30 MINUTES PRIOR TO BRERAKFAST OR OTHER MEDICINE 90 Tablet 3 3 Active Losartan Potassium 100 MG Oral Tablet (Cozaar)Indications :HTN, goal below 140/90 Take 1 Tablet by mouth in the morning. 90 Tablet 3 4 Active Omeprazole 20 MG Oral Capsule Delayed Release (PriLOSEC)Indicatio ns:Dysphagia, unspecified type Take 1 Capsule by mouth in the morning. 1 hour before the first meal of the day. 90 Capsule 3 4 Active Atenolol-Chlorthali done 50-25 MG Oral TabletIndications:H TN, goal below 140/90 take 1 tablet by mouth every morning 90 Tablet 4 Active Atenolol-Chlorthali done 50-25 MG Oral TabletIndications:H TN, goal below 140/90 Take 1 Tablet by mouth in the morning. 90 Tablet 3 3 04/19/20 24 Discontinued documented as of this encounter (statuses as of 04/28/2024) Active Problems Problem Noted Date Diagnosed Date [...] as of this encounter (statuses as of 04/28/2024) Resolved Problems Problem Noted Date Diagnosed Date [...] as of this encounter (statuses as of 04/28/2024) Immunizations Name Administration Dates Next Due COVID-19 mRNA, LNP-s, No Pre serve, 2-Dose Series (Kodable) 09/02/2021,01/08/2021,12/18/2020 Pneumococcal Conjugate Vacc, 13 Valent (Prevnar) [...] encounter Miscellaneous Notes * Telephone Encounter - Sherita Foote - 04/28/2024 5:37 PM EDT Received message from [facility] regarding patient needing labs. Patient was notified. Successfully contacted patient and provided [facility] message. * Telephone Encounter - Lauro Banks [facility] - 04/19/2024 1:58 PM EDTSigned Prescriptions: Disp Refills Atenolol-Chlorthalidone 50-25 MG Oral Tabl*90 Tab*0 Sig: take 1 tablet by mouth every morning Authorizing Provider: MARIA TERESA WHITE Ordering User: LAURO BANKS * Telephone Encounter - Lauro Banks [facility] - 04/19/2024 1:42 PM EDT Provided 90 days supply with 0 refill(s) until upcoming appointment. Per refill protocol patient should have BMP on file within past year. Reviewed AMP report, Care Gaps/Health Maintenance, medications list, and for any routine labs typically ordered for this patient. Lab orders placed. Please contact patient to advise of labs ordered for blood draw. Recommend patient to fast if able for labs. Patient may still have water and regular medications. Advise to obtain labs before requesting the next refill. Thank You, Lauro Banks, Pharm-D Clinical Pharmacist [facility] ([facility]) (Formerly [facility]) [phone] 04/19/2024, 1:57 PM documented in this encounter Plan of Treatment Upcoming Encounters Date Type Department Care Team (Late st Contact Info) Description 05/13/2024 3:20 PM EDT Office Visit Family Medicine [address] [place] [address] Maria Teresa White MD [address] [place] [address] [place] [address] 05/25/2024 10:40 AM EDT Office Visit Dermatology [address] [place] [address] Katie Mckeon PA-C [address] [place] [address] [place] [address] 06/06/2024 7:00 AM EDT Imaging Radiology [facility] [address] [place] [address] 06/16/2024 3:00 PM EDT Telemedicine Cardiothoracic Surg [facility] [address] [place] [address] Stevie Mcallister MD [address] [facility] [place] [address] 06/22/2024 8:40 AM EDT Office Visit Podiatry [address] [place] [address] Malathi Andres, DPHumza [address] [place] [address] Scheduled Orders Name Type Priority Associated Diagnoses Orde r Schedule BASIC METABOLIC PANEL Lab Routine Encounter for long-term (current) use of medications Expected: 04/20/2024 (Approximate), Expires: 04/19/2025 TSH WITH FREE T4 IF INDICATED Lab Routine Encounter for long-term (current) use of medications Expected: 04/20/2024 (Approximate), Expires: 04/19/2025 VITAMIN B12 Lab Routine Encounter for long-term (current) use of medications Expected: 04/20/2024 (Approximate), Expires: 04/19/2025 LIPID PANEL WITH DIRECT LDL IF TG IS HIGH Lab Routine Encounter for long-term (current) use of medications Expected: 04/20/2024 (Approximate), Expires: 04/19/2025 MAGNESIUM Lab Routine Encounter for long-term (current) use of medications Expected: 04/20/2024 (Approximate), Expires: 04/19/2025 Scheduled Procedures Name Priority Associated Diagnoses Date/Ti me COLONOSCOPY FLEXIBLE PROXIMA L DIAGNOSTIC Recall Encounter for screening colonoscopy Health Maintenance Due Date Last Done Comments Cologuard 1998 Sigmoidoscopy 1998 Fecal Occult Blood Test 08/13/2007 08/13/2006 COVID-19 Vaccine ( season) 2023 09/02/2021, 01/08/2021, 12/18/2020 Depression Screening 05/12/2024 05/12/2023 GFR 05/12/2024 05/12/2023, 12/31, 12/18/2022, Additional history exists TSH 05/12/2024 05/12/2023, 06/0 04/2022, 02/01/2021, Additional history exists Albumin/Creatinine Ratio 05/05/2025 05/05/2022 Colonoscopy 05/18/2027 05/18/2017, 04/30, 03/06/2014, Additional history exists Colorectal Cancer Screening 05/18/2027 Lipid Panel 05/12/2028 05/12/2023, 06/0 04/2022, 02/01/2021, Additional history exists DTaP,Tdap,and Td Vaccines (3 - Td or Tdap) 01/10/2029 01/10/2019, 08/24/2008 AAA Screening Completed 01/18/2019 Pneumococcal Vaccine: 65+ [...] as of this encounter Visit Diagnoses Diagnosis Encounter for long-term (current) use of medications- Primary Encounter for long-term (current) use of other medications HTN, goal below 140/90 Unspecified essential hypertension documented in this encounter Care Teams Conference Specialist Relationship Specialty Start Date End Date Maria Teresa White MD [address] [place] [address] [place] [address] PCP - General Family Medicine 10/28/14 documented as of this encounter
--- OUTSIDE RECORDS SUMMARY | 2024-05-26 23:42 | External Medical Summary | Summary of Care ---
Author Name Unknown Organization [facility] Address [address] [facility] [address] [address] [place] [address] Phone [phone] Care Team Providers Care Tube Pusher Name Role Phone Maria Teresa White MD Primary Care Provide r Reason for Visit * Reason Comments Re-Check Encounter Details Date Type Department Care Team (Latest Contact Info) Description 05/13/2024 3:20 PM EDT Office Visit Family Medicine [address] [place] [address] Maria Teresa White MD [address] [place] [address] [place] [address] HTN, GOAL BELOW 140/90*; Dyslipidemia, goal LDL below 130; Aneurysm of ascending aorta without rupture (HCC); Acquired hypothyroidism Allergies No known active allergiesdocumented as of this encounter (statuses as of 05/13/2024) Medications Medication Sig Dispensed Refills Start Date [...] the morning. 90 Tablet 3 01/04/2024 Active Omeprazole 20 MG Oral Capsule Delayed Release (PriLOSEC)Indications :Dysphagia, unspecified type Take 1 Capsule by mouth in the morning. 1 hour before the first meal of the day. 90 Capsule 3 03/15/2024 Active Atenolol-Chlorthalido ne 50-25 MG Oral TabletIndications:HTN , goal below 140/90 take 1 tablet by mouth every morning 90 Tablet 04/19/2024 Active documented as of this encounter (statuses as of 05/13/2024) Active Problems Problem Noted Date Diagnosed Date [...] as of this encounter (statuses as of 05/13/2024) Resolved Problems Problem Noted Date Diagnosed Date [...] as of this encounter (statuses as of 05/13/2024) Immunizations Name Administration Dates Next Due COVID-19 mRNA, LNP-s, No Pre serve, 2-Dose Series ([employer]) 09/02/2021,01/08/2021,12/18/2020 Pneumococcal Conjugate Vacc, 13 Valent (Prevnar) [...] Cigarettes Q uit: 01/28/1983 Smokeless Tobacco: Never Tobacco Cessation:Counseling Given: Not Answered Comments:2 pk/yr for 15 years Alcohol Use Standard Drinks/Week Comments Yes 0 [...] on file documented as of this encounter Last Filed Vital Signs Vital Sign Reading Time Taken Comments Blood Pressure 126/70 05/13/2024 3:08 PM EDT Pulse 57 05/13/2024 3:08 PM EDT Temperature 36 C (96.8 F) 05/13/2024 3:08 PM EDT Respiratory Rate 16 05/13/2024 3:08 PM EDT Oxygen Saturation - - Inhaled Oxygen Concentration - - Weight 66.3 kg (146 lb 2 oz) 05/13/2024 3:08 PM EDT Height 175.3 cm (5' 9") 05/13/2024 3:08 PM EDT Body Mass Index 21.58 05/13/2024 3:08 PM EDT documented in this encounter Progress Notes * Maria Teresa White MD - 05/13/2024 3:22 PM EDT Subjective: Amauri Patel is a 69 year old male. Chief Complaint Patient presents with Re-Check HPI: Brief Clinical History Mr. Patel is a 69 year old man last seen in Family Medicine 4 months ago (12-15-23). He is not due for eval of any conditions. Has not been checking blood pressure for a while since his readings had been doing good for a long time. Was seen here in November with dysphagia. Was put on omeprazole and symptoms resolved after one weekso he quit taking it. Is not having any issues now. Blood pressure medications were adjusted last year for bradycardia. Following with cardiology. Is scheduled for a follow-up chest CT 06/06/24 to follow-up on ascending aorta. Results for orders placed or performed in visit on 06/03/23 SURGICAL PATHOLOGY Result Value Ref Range Final Diagnosis A. Skin, L preauricular region, shave: Actinic keratosis. Clinical History See Order Comments Order Comments 1A. L preauricular region-1.2x0.5cm yellow-white hyperkeratotic plaque. hAK vs SCC Gross Description A. Skin. shave Received in formalin with a container labeled with "Amauri A Chronister", "[id number]", "1955" and " left preauricular region". Received is a 0.8 x 0.7 cm skin shave. The skin surface is noyola-white slightly raised and firm. The underlying tissue is inked. The specimen is bisected and submitted in cassette A1. Gross By: MR Sign Out Location Pathologist sign out performed at [facility] ([facility] [place] [address]. Photographic images and diagrams represent diaz findings in this case; they are not intended to replace a complete review of the final diagnostic report. The following statement applies to Flow Cytometry, Histology, In situ Hybridization Assays and Molecular Genetics. This test was developed and performed at [facility] and its performance characteristics determined by [facility]. It has not been cleared or approved by the U.S. Food and Drug Administration. The FDA has determined that such clearance or approval is not necessary. This test is used for clinical purposes. It should not be regarded as investigationalor for research. Special stains, including histochemical stains, and studies using immunologic and SAMANTHA methodology (where applicable) are performed with appropriate positive and negative control reactions. PHM: Patient Active Problem List Diagnosis Hypothyroidism ADVANCE DIRECTIVE INFORMATION HTN, GOAL BELOW 140/90 Thoracic aortic aneurysm without rupture (HCC) Dyslipidemia, goal LDL below 130 Hx of nonmelanoma skin cancer AK (actinic keratosis) Dupuytren's contracture of both hands Current Outpatient Medications Medication Sig Dispense Refill MULTIVITAMIN PO TABS daily 0 ASPIRIN 81 MG PO TABS 1 TABLET DAILY 0 VITAMIN C 500 MG PO TABS 1 TABLET DAILY 0 VITAMIN E 400 UNIT PO TABS daily 0 ibuprofen (MOTRIN) 200 MG Tablet Take 1 Tablet by mouth in the morning and 1 Tablet before bedtime. triamcinolone acetonide (ARISTOCORT) 0.1 % ointment Apply 2x daily to rash (or more if itchy) untilresolved and then when flaring 80 g 0 Vardenafil HCl 20 MG Oral Tablet Take 1 Tablet by mouth daily as needed for Erectile Dysfunction. As directed. 90 Tablet 1 Levothyroxine Sodium 88 MCG Oral Tablet (Levoxyl) take 1 tablet by mouth daily AT LEAST 30 MINUTES PRIOR TO BRERAKFAST OR OTHER MEDICINE 90 Tablet 3 Losartan Potassium 100 MG Oral Tablet (Cozaar) Take 1 Tablet by mouth in the morning. 90 Tablet 3 Omeprazole 20 MG Oral Capsule Delayed Release (PriLOSEC) Take 1 Capsule by mouth in the morning. 1 hour before the first meal of the day. 90 Capsule 3 Atenolol-Chlorthalidone 50-25 MG Oral Tablet take 1 tablet by mouth every morning 90 Tablet 0 No current facility-administered medications for this visit. Past Medical History: Diagnosis Date Aortic aneurysm (HCC) Dr. Darryl Londono BCC (basal cell carcinoma of skin) HTN, goal below 140/90 Hypothyroidism Past Surgical History: Procedure Laterality Date COLONOSCOPY 02/2004 no polyps COLONOSCOPY, DIAGNOSTIC (RECTUM) 03/06/2014 COLONOSCOPY FLEXIBLE PROXIMAL DIAGNOSTIC performed by Rony Block MD at [facility] COLONOSCOPY, DIAGNOSTIC (RECTUM) 05/18/2017 diverticulosis, repeat 10 yrs/COLONOSCOPY FLEXIBLE PROXIMAL DIAGNOSTIC performed by Rony Block MD at [facility] NONE 10/14/05 LI at [facility] by Dr. Piña REMOVAL OF APPENDIX REMOVAL OF KNEE CYST (AGUILAR'S) REPAIR INITIAL INGUINAL HERNIA REDUCIBLE AGE 5 OR MORE Social History Socioeconomic History Marital status: Single Spouse name: Not on file Number of children: Not on file Years of education: Not on file Highest education level: Not on file Occupational History Not on file Tobacco Use Smoking status: Former Current packs/day: 0.00 Types: Cigarettes Quit date: 01/28/1983 Years since quittin.3 Smokeless tobacco: Never Tobacco comments: 2 pk/yr for 15 years Vaping Use Vaping status: Never Used Substance and Sexual Activity Alcohol use: Yes Comment: 3 BEERS /DAY Drug use: No Sexual activity: Yes Partners: Female Other Topics Concern Not on file Social History Narrative Not on file Social Determinants of Health Financial Resource Strain: Not on file Food Insecurity: Not on file Transportation Needs: Not on file Physical Activity: Not on file Stress: Not on file Social Connections: Not on file Intimate Partner Violence: Not on file Housing Stability: Not on file Review of patient's allergies indicates: No Known Allergies Objective: BP 126/70 | Pulse 57 | Temp 36 C (96.8 F) (Tympanic) | Resp 16 | Ht 1.753 m (5' 9") | Wt 66.3 kg (146 lb 2 oz) | BMI 21.58 kg/m | BSA 1.8 m Physical Exam: General: alert, healthy, no distress, well nourished, and well developed Head: Normocephalic, No masses, lesions, tenderness or abnormalities Eye Exam: PERRLA, extraocular movements intact, conjunctiva are pink and non- injected, sclera clear Ears: External ears normal, Canals clear, TM's Normal Nose: no mucosal erythema, no mucosal edema, no purulent discharge Oropharynx: no exudate, no erythema, lips, buccal mucosa, and tongue normal, and mucous membranes are moist Neck: supple, no adenopathy, no bruits Heart: regular rate & rhythm, no murmur, and no gallops Lungs: chest symmetric with normal AP diameter, no chest deformities noted, no chest wall tenderness, lungs clear to auscultation Extremities: no edema, no clubbing, no cyanosis Neuro Exam: alert & oriented x 3 with fluent speech, no focal motor/sensory deficits, gait normal Extensive ROS Constitutional (f/c/wt/vision/hearing): Negative Resp (cough/sob/kong): Negative CV (cp/palp/fluttering/diaphoresis/kong/pnd):see above hpi GI (n/v/d/hrtburn): Negative Endo (hair/cold or heat intol/ 3 p's): Negative Neuro (shaking/weak/fatigu/parasthesi/): Negative Skin (rash/easy bruis/xerosis): Negative Psy (si/hi/halluc/): Negative (nocturia/hesit/drib/sexual review): Negative Lymph (swollen glands/b sx's/: Negative ASSESSMENT: HTN, GOAL BELOW 140/90 (Primary)--controlled with atenolol-chlorthalidone 50/25 mg and losartan 100mg daily. Atenolol was reduced 1 year ago due to bradycardia - BASIC METABOLIC PANEL; Future; Expected date: 05/13/2024 Dyslipidemia, goal LDL below 130--check labs - LIPID PANEL WITH DIRECT LDL IF TG IS HIGH; Future; Expected date: 05/13/2024 Aneurysm of ascending aorta without rupture (HCC)--following with CT surgery. Having chest CT 06/06/24. Acquired hypothyroidism--controlled with levothyroxine 88 mcg daily - TSH WITH FREE T4 IF INDICATED; Future; Expected date: 05/13/2024 Follow Up: Return in about 6 months (around 11/12/2024) for Clinic Visit. | For: Clinic Visit PLAN: Continue present medication(s): Schedule labs: BMP, TSH, and lipid panel Patient education: follow-up for chest CT as scheduled. Call or return if dysphagia returns. Resolved with 1 week of PPI and has not returned. Follow up: in 6 month(s). Maria Teresa White MD documented in this encounter Nursing Notes * Aide Rangel LPN - 05/13/2024 3:08 PM EDT 6 month recheck documented in this encounter Plan of Treatment Upcoming Encounters Date Type Department Care Team (Late st Contact Info) Description 05/13/2024 4:00 PM EDT Laboratory Laboratory [address] [place] [phone] [facility] [address] [place] [address] HTN, GOAL BELOW 140/90; Dyslipidemia, goal LDL below 130; Acquired hypothyroidism 06/06/2024 7:00 AM EDT Imaging Radiology [facility] [address] [facility] [place] [address] 06/16/2024 3:00 PM EDT Telemedicine Cardiothoracic Surg [facility] [address] [place] [address] Stevie Mcallister MD [address] [place] [address] 06/22/2024 8:40 AM EDT Office Visit Podiatry [facility] [address] [place] [address] Malathi Andres, DPM [address] [place] [address] 06/22/2024 1:20 PM EDT Office Visit Dermatology [address] [place] [address] Katie Mckeon PA-C [address] [place] [address] [place] [address] 11/14/2024 8:00 AM EST Office Visit Family Medicine [address] [place] [phone] Rima Dewitt PA-C [address] [place] [address] [place] [address] Pending Results Name Type Priority Associated Diagnoses Date /Time BASIC METABOLIC PANEL Lab Routine HTN, GOAL BELOW 140/90 05/13/2024 3:41 PM EDT LIPID PANEL WITH DIRECT LDL IF TG IS HIGH Lab Routine Dyslipidemia, goal LDL below 130 05/13/2024 3:41 PM EDT TSH WITH FREE T4 IF INDICATED Lab Routine Acquired hypothyroidism 05/13/2024 3:41 PM EDT Scheduled Orders Name Type Priority Associated Diagnoses Orde r Schedule BASIC METABOLIC PANEL Lab Routine HTN, GOAL BELOW 140/90 Expected: 05/13/2024 (Approximate), Expires: 05/13/2025 LIPID PANEL WITH DIRECT LDL IF TG IS HIGH Lab Routine Dyslipidemia, goal LDL below 130 Expected: 05/13/2024, Expires: 05/13/2025 TSH WITH FREE T4 IF INDICATED Lab Routine Acquired hypothyroidism Expected: 05/13/2024 (Approximate), Expires: 05/13/2025 Scheduled Procedures Name Priority Associated Diagnoses Date/Ti [...] Cancer Screening 05/18/2027 Lipid Panel 05/12/2028 05/12/2023, 060 04/2022, 02/01/2021, Additional history exists DTaP,Tdap,and Td [...] as of this encounter Visit Diagnoses Diagnosis HTN, GOAL BELOW 140/90- Primary Unspecified essential hypertension Dyslipidemia, goal LDL below 130 Other and unspecified hyperlipidemia Aneurysm of ascending aorta without rupture (HCC) Acquired hypothyroidism Unspecified hypothyroidism HTN, GOAL BELOW 140/90 Unspecified essential hypertension Dyslipidemia, goal LDL below 130 Other and unspecified hyperlipidemia Acquired hypothyroidism Unspecified hypothyroidism documented in this encounter Care Teams Tube Pusher Relationship Specialty Start Date End Date Maria Teresa White MD [address] [place] [address] [place] [phone] PCP - General Family Medicine 10/28/14 documented as of this encounter
--- OUTSIDE RECORDS SUMMARY | 2024-05-26 23:42 | External Medical Summary | Summary of Care ---
Author Name Unknown Organization [facility] Address [address] [facility] [place] [address] Phone [phone] Care Team Providers Care Gasoline Attendant Name Role Phone Maria Teresa White MD Primary Care Provide r Reason for Visit * Reason Comments Outpatient Testing Encounter Details Date Type Department Care Team (Late st Contact Info) Description 05/13/2024 4:00 PM EDT Laboratory Laboratory [address] [place] [phone] [facility] Lab [address] [place] [address] HTN, GOAL BELOW 140/90; Dyslipidemia, goal LDL below 130; Acquired hypothyroidism Allergies No known active allergiesdocumented [...] mRNA, LNP-s, No Pre serve, 2-Dose Series ([employer]) 09/02/2021,01/08/2021,12/18/2020 Pneumococcal Conjugate Vacc, 13 Valent (Prevnar) [...] on file documented as of this encounter Plan of Treatment Upcoming Encounters Date Type Department Care Team (Late st Contact Info) Description 06/06/2024 7:00 AM EDT Imaging Radiology [address] [facility] [place] [address] 06/16/2024 3:00 PM EDT Telemedicine Cardiothoracic Surg [facility] [address] [place] [address] Stevie Mcallister MD [address] [place] [address] 06/22/2024 8:40 AM EDT Office Visit Podiatry [address] [place] [address] Malathi Andres, DPHumza [address] [place] [address] 06/22/2024 1:20 PM EDT Office Visit Dermatology [address] [place] [address] Katie Mckeon PA-C [address] [place] [address] [place] [address] 11/14/2024 8:00 AM EST Office Visit Family Medicine [address] [place] [phone] Rima Dewitt PA-C [address] [place] [address] [place] [address] Pending Results Name Type Priority Associated Diagnoses Date /Time BASIC METABOLIC PANEL Lab Routine HTN, GOAL BELOW 140/90 05/13/2024 3:41 PM EDT LIPID PANEL WITH DIRECT LDL IF TG IS HIGH Lab Routine Dyslipidemia, goal LDL below 130 05/13/2024 3:41 PM EDT TSH WITH FREE T4 IF INDICATED Lab Routine Acquired hypothyroidism 05/13/2024 3:41 PM EDT Scheduled Procedures Name Priority Associated Diagnoses Date/Ti [...] encounter Visit Diagnoses Diagnosis HTN, GOAL BELOW 140/90 Unspecified essential hypertension Dyslipidemia, goal LDL below 130 Other and unspecified hyperlipidemia Acquired hypothyroidism Unspecified hypothyroidism documented in this encounter Care Teams Gasoline Attendant Relationship Specialty Start Date End Date Maria Teresa White MD [address] [place] [address] [place] [address] PCP - General Family Medicine 10/28/14 documented as of this encounter
--- OUTSIDE RECORDS SUMMARY | 2024-05-26 23:42 | External Medical Summary | Summary of Care ---
Author Name Unknown Organization [facility] Address [address] [facility] [place] [address] Phone [phone] Care Team Providers Care Central Supply Tech Name Role Phone Maria Teresa White MD Primary Care Provide r Reason for Visit * Reason Onset Date Comments Test Results Lab 05/19/2024 Encounter Details Date Type Department Care Team (Late st Contact Info) Description 05/19/2024 Telephone Family [address] [place] [address] Philippe De La Garza [address] [place] [address] Test Results Lab Allergies No known active allergiesdocumented as of this encounter (statuses as of 05/19/2024) Medications Medication Sig Dispensed Refills Start Date [...] as of this encounter (statuses as of 05/19/2024) Active Problems Problem Noted Date Diagnosed Date [...] as of this encounter (statuses as of 05/19/2024) Resolved Problems Problem Noted Date Diagnosed Date [...] as of this encounter (statuses as of 05/19/2024) Immunizations Name Administration Dates Next Due COVID-19 mRNA, LNP-s, No Pre serve, 2-Dose Series ([employer]) 09/02/2021,01/08/2021,12/18/2020 Pneumococcal Conjugate Vacc, 13 Valent (Prevnar) [...] encounter Miscellaneous Notes * Telephone Encounter - Philippe De La Garza CRNP - 05/19/2024 12:10 PM EDT Labs reviewed. TSH slightly elevated. Will plan to repeat in 6 weeks. Otherwise labs are stable. documented in this encounter Plan of Treatment Upcoming Encounters Date Type Department Care Team (Late st Contact Info) Description 06/06/2024 7:00 AM EDT Imaging [address]iology [address] [address] 06/16/2024 3:00 PM EDT Telemedicine Cardiothoracic Surg [facility] [address] [place] [address] Stevie Mcallister MD [address] [place] [address] 06/22/2024 8:40 AM EDT Office Visit Podiatry [address] [place] [address] Malathi Andres DPM [address] [facility] [place] [address] 06/22/2024 1:20 PM EDT Office Visit Dermatology [address] [place] [address] Katie Mckeon PA-C [address] [place] [address] [place] [address] 11/14/2024 8:00 AM EST Office Visit Family Medicine [address] [place] [phone] Rima Dewitt PA-C [address] [place] [address] [place] [address] Scheduled Orders Name Type Priority Associated Diagnoses Orde r Schedule TSH Lab Routine Acquired hypothyroidism Expected: 06/30/2024 (Approximate), Expires: 05/19/2025 Scheduled Procedures Name Priority Associated Diagnoses Date/Ti [...] as of this encounter Visit Diagnoses Diagnosis Acquired hypothyroidism- Primary Unspecified hypothyroidism documented in this encounter Care Teams Central Supply Tech Relationship Specialty Start Date End Date Maria Teresa White MD [address] [place] [address] [place] [address] PCP - General Family Medicine 10/28/14 documented as of this encounter
--- OUTSIDE RECORDS SUMMARY | 2024-05-26 23:42 | External Medical Summary ---
Author Name Unknown Address Unknown Organization K01:[facility] [address] [place] [address] Laboratory Report Ordering Provider Test Date Status MARIA L TRUJILLO 05/13/2024 15:41:09 Final Observation Date Value Abnormality Reference (Units ) Status TSH 05/13/2024 15:41:09 4.43 Above high normal 0. 27-4.20 (uIU/mL) Final Performing Location [facility] [place] [address] [place] [address]
--- OUTSIDE RECORDS SUMMARY | 2024-05-26 23:42 | External Medical Summary | Summary of Care ---
Author Name Unknown Organization [facility] Address [address] [facility] [place] [address] Phone [phone] Care Team Providers Care Application Development Project Manager Name Role Phone Maria Teresa White MD Primary Care Provide r Reason for Visit * Reason Onset Date Comments Test Results Lab 05/19/2024 Encounter Details Date Type Department Care Team (Late st Contact Info) Description 05/19/2024 Telephone Family [address] [place] [phone] Philippe De La Garza [address] [place] [address] Test Results Lab Allergies No known active allergiesdocumented as of this encounter (statuses as of 05/20/2024) Medications Medication Sig Dispensed Refills Start Date [...] as of this encounter (statuses as of 05/20/2024) Active Problems Problem Noted Date Diagnosed Date [...] as of this encounter (statuses as of 05/20/2024) Resolved Problems Problem Noted Date Diagnosed Date [...] as of this encounter (statuses as of 05/20/2024) Immunizations Name Administration Dates Next Due COVID-19 mRNA, LNP-s, No Pre serve, 2-Dose Series ([facility]) 09/02/2021,01/08/2021,12/18/2020 Pneumococcal Conjugate Vacc, 13 Valent (Prevnar) [...] Description 06/06/2024 7:00 AM EDT Imaging Radiology [address] [address] 06/16/2024 3:00 PM EDT Telemedicine Cardiothoracic Surg [facility] [address] [place] [address] Stevie Mcallister MD [address] [place] [address] 06/22/2024 8:40 AM EDT Office Visit Podiatry [address] [place] [address] Malathi Andres DPM 400 [facility] [place] [address] 06/22/2024 1:20 PM EDT Office Visit Dermatology [address] [place] [address] Katie Mckeon PA-C [address] [place] [address] [place] [address] 11/14/2024 8:00 AM EST Office Visit Family Medicine [address] [place] [phone] Rima Dewitt PA-C [address] [place] [address] [place] [address] Scheduled Orders Name Type Priority Associated Diagnoses [...] hypothyroidism documented in this encounter Care Teams Application Development Project Manager Relationship Specialty Start Date End Date Maria Teresa White MD [address] [place] [address] [place] [address] PCP - General Family Medicine 10/28/14 documented as of this encounter
--- OUTSIDE RECORDS SUMMARY | 2024-05-26 23:43 | External Medical Summary | Summary of Care ---
Author Name Unknown Organization [facility] Address [address] [facility] [place] [address] Phone [phone] Care Team Providers Care Doll Surgeon Name Role Phone Maria Teresa White MD Primary Care Provide r Encounter Details Date Type Department Care Team (Late st Contact Info) Description 04/26/2024 Orders Only PATIENT PORTAL DO NOT DELETE THIS DEPT USED BY [place] [id number] Allergies No known active allergiesdocumented as of this encounter (statuses as of 04/26/2024) Medications Medication Sig Dispensed Refills Start Date [...] as of this encounter (statuses as of 04/26/2024) Active Problems Problem Noted Date Diagnosed Date [...] as of this encounter (statuses as of 04/26/2024) Resolved Problems Problem Noted Date Diagnosed Date [...] as of this encounter (statuses as of 04/26/2024) Immunizations Name Administration Dates Next Due COVID-19 [...] 12/26/2019 TDAP (age 10 and older)(Boostrix) 01/10/2019 TDAP (age 11 and older)(Adacel) 08/24/2008 Varicella Zoster Vaccine (Adult) 12/18/2017 Zoster [...] 3:20 PM EDT Office Visit Family Medicine [address] [place] [phone] Maria Teresa White MD [address] [place] [address] [place] [address] 05/25/2024 10:40 AM EDT Office Visit Dermatology [address] [place] [address] Katie Mckeon PA-C [address] [place] [address] [place] [address] 06/06/2024 7:00 AM EDT Imaging Radiology [address] 132 [facility] [address] 06/16/2024 3:00 PM EDT Telemedicine Cardiothoracic Surg [facility] [address] [place] [address] Stevie Mcallister MD [address] [place] [address] 06/22/2024 8:40 AM EDT Office Visit Podiatry [address] [place] [address] Malathi Andres DPM [address] [facility] [place] [address] Scheduled Procedures Name Priority Associated Diagnoses Date/Ti me COLONOSCOPY FLEXIBLE PROXIMA L DIAGNOSTIC Recall Encounter for screening colonoscopy Health Maintenance Due Date Last Done Comments Cologuard 1998 Sigmoidoscopy 1998 Fecal Occult Blood Test 08/13/2007 08/13/2006 COVID-19 Vaccine (4 - 2023-24 season) 2023 09/02/2021, 01/08/2021, 12/18/2020 Depression Screening 05/12/2024 05/12/2023 GFR 05/12/2024 05/12/2023, 12/31, 12/18/2022, Additional history exists TSH 05/12/2024 05/12/2023, 04/2022, 02/01/2021, Additional history exists Albumin/Creatinine Ratio 05/05/2025 05/05/2022 Colonoscopy 05/18/2027 05/18/2017, 04/30, 03/06/2014, Additional history exists Colorectal Cancer Screening 05/18/2027 Lipid Panel 05/12/2028 05/12/2023, 0 04/2022, 02/01/2021, Additional history exists DTaP,Tdap,and Td [...] Not on filedocumented as of this encounter Care Teams Doll Surgeon Relationship Specialty Start Date End Date Maria Teresa White MD [address] [place] [address] [place] [address] PCP - General Family Medicine 10/28/14 documented as of this encounter
--- OUTSIDE RECORDS SUMMARY | 2024-05-26 23:43 | External Medical Summary | Summary of Care ---
Author Name Unknown Organization [facility] Address [address] [facility] [address] Phone [phone] Care Team Providers Care Wire Photo Operator News Name Role Phone Maria Teresa White MD Primary Care Provide r Reason for Visit * Reason Comments Follow Up L foot Encounter Details Date Type Department Care Team (Late st Contact Info) Description 12/21/2023 10:40 AM EST Office Visit Podiatry Health system [address] [facility] [place] [address] Malathi Andres, DPHumza [facility] [place] [phone] Callus of foot*; Pain in both feet Allergies No known active allergiesdocumented as of this encounter (statuses as of 12/21/2023) Medications Medication Sig Dispensed Refills Start Date [...] the morning and 1 Tablet before bedtime. 0 Active triamcinolone acetonide (ARISTOCORT) 0.1 % ointmentIndications:C ontact dermatitis, unspecified contact dermatitis type, unspecified trigger,Xerosis cutis Apply 2x daily to rash (or more if itchy) until resolved and then when flaring 80 g 0 03/30/2017 Active Vardenafil HCl 20 MG Oral TabletIndications:Imp otence of organic origin Take 1 Tablet by mouth daily as needed for Erectile Dysfunction. As directed. 90 Tablet 1 01/12/2023 Active Atenolol-Chlorthalido ne 50-25 MG Oral TabletIndications:HTN , goal below 140/90 Take 1 Tablet by mouth in the morning. 90 Tablet 3 05/12/2023 Active Losartan Potassium 100 MG Oral Tablet (Cozaar)Indications:H TN, goal below 140/90 Take 1 Tablet by mouth in the morning. 90 Tablet 3 05/28/2023 Active Levothyroxine Sodium 88 MCG Oral Tablet (Levoxyl)Indications: Acquired hypothyroidism take 1 tablet by mouth daily AT LEAST 30 MINUTES PRIOR TO BRERAKFAST OR OTHER MEDICINE 90 Tablet 3 06/02/2023 Active Omeprazole 20 MG Oral Capsule Delayed Release (PriLOSEC)Indications :Dysphagia, unspecified type Take 1 Capsule by mouth in the morning. 1 hour before the first meal of the day. 30 Capsule 5 12/15/2023 Active documented as of this encounter (statuses as of 12/21/2023) Active Problems Problem Noted Date Diagnosed Date [...] as of this encounter (statuses as of 12/21/2023) Resolved Problems Problem Noted Date Diagnosed Date [...] as of this encounter (statuses as of 12/21/2023) Immunizations Name Administration Dates Next Due COVID-19 mRNA, LNP-s, No Pre serve, 2-Dose Series (Mod[employer]) 09/02/2021,01/08/2021,12/18/2020 Pneumococcal Conjugate Vacc, 13 Valent (Prevnar) [...] on file documented as of this encounter Progress Notes * Malathi Andres, DPM - 12/21/2023 10:31 AM EST Podiatry Established Note [facility] Name: Amauri Patel : 1955 Date: 12/21/2023 REASON FOR VISIT: callosities SUBJECTIVE: This patient is a 68 year old male who presents today for follow up of recurrent painful callosities to both feet. Paring seems to help. He reports increased pain though to a thicker areato the bottom of the left foot. Past Medical History: Diagnosis Date Aortic aneurysm (HCC) Dr. Darryl Londono BCC (basal cell carcinoma of skin) HTN, goal below 140/90 Hypothyroidism ALLERGIES: Review of patient's allergies indicates: No Known Allergies REVIEW OF SYSTEMS: CONSTITUTIONAL: No fever FOCUSED PODIATRIC EXAM: Vascular: Pedal pulses palpable including dorsalis pedis and posterior tibial artery at 2/4 bilaterally. Capillary refill time is within normal limits to all toes. No edema noted. No warmth. Pedal hair growth noted. Neurologic: Sensation (light touch) intact to the bilateral foot. No hypersensitivity. No weakness. Musculoskeletal: There is pain with palpation of the left plantar foot sub metatarsal head 3 and 5. There is a skin lesion at this site with surrounding soft tissue/skin prominence. Bunion deformity of the left foot noted. He also reports mild pain with palpation of remaining skin lesion sites - left plantar foot sub metatarsal head one, right plantar foot sub metatarsal heads one and two. Dermatological: Skin temperature, texture, and turgor are within normal limits. No open lesions. There is no erythema or ecchymosis noted. Hyperkeratotic skin lesion noted to the left plantar foot sub metatarsal head 1, 3 and right plantar foot sub metatarsal head 2. DIAGNOSTIC STUDIES: No new ASSESSMENT: 1. Callus of foot x 4 2. Pain in both feet PLAN: Procedure: After prepping the area with alcohol and allowing to dry, the hyperkeratotic lesions to the plantarleft foot x 2 and plantar right foot x 2 were sharply pared of all hyperkeratotic skin. This was performed with a #15 blade. An electrical umbrella bur was used to reduce any remaining edges. Patienttolerated well and noted improvement following procedure. Follow up: 3 months documented in this encounter Nursing Notes * Gema Willis LPN - 12/21/2023 10:30 AM EST Pt presents for follow up visit, c/o tender area on bottom of L foot, painful if he steps a certainway. Requested sooner visit. documented in this encounter Plan of Treatment Upcoming Encounters Date Type Department Care Team (Late st Contact Info) Description 03/21/2024 8:40 AM EDT Office Visit Podiatry [address] [place] [address] Malathi Andres DPM [facility] [place] [address] 05/13/2024 3:20 PM EDT Office Visit Family Medicine [address] [place] [phone] Maria Teresa White MD [address] [place] [address] [place] [address] 06/13/2024 8:40 AM EDT Office Visit Dermatology [address] [place] [address] Katie Mckeon PA-C [address] [place] [address] [place] [address] Scheduled Procedures Name Priority Associated Diagnoses Date/Ti [...] Callus of foot- Primary Corns and callosities Pain in both feet Pain in limb documented in this encounter Care Teams Wire Photo Operator News Relationship Specialty Start Date End Date Maria Teresa White MD [address] [place] [address] [place] [phone] PCP - General Family Medicine 10/28/14 documented as of this encounter
--- OUTSIDE RECORDS SUMMARY | 2024-05-26 23:43 | External Medical Summary | Summary of Care ---
Author Name Unknown Organization [facility] Address [address] [facility] [place] [address] Phone [phone] Care Team Providers Care Mold Construction Supervisor Name Role Phone Maria Teresa White MD Primary Care Provide r Reason for Visit * Reason Onset Date Comments Referral 12/15/2023 EGD Encounter Details Date Type Department Care Team (Late st Contact Info) Description 12/15/2023 Telephone Family Medicine [address] [place] [address] Rima Dewitt PA-C [address] [place] [address] [place] [address] Referral (EGD) Allergies No known active allergiesdocumented as of this encounter (statuses as of 01/06/2024) Medications Medication Sig Dispensed Refills Start Date [...] the morning. 90 Tablet 3 05/12/2023 Active Levothyroxine Sodium 88 MCG Oral Tablet [...] as of this encounter (statuses as of 01/06/2024) Active Problems Problem Noted Date Diagnosed Date [...] as of this encounter (statuses as of 01/06/2024) Resolved Problems Problem Noted Date Diagnosed Date [...] as of this encounter (statuses as of 01/06/2024) Immunizations Name Administration Dates Next Due COVID-19 mRNA, LNP-s, No Pre serve, 2-Dose Series (JamOrigin) 09/02/2021,01/08/2021,12/18/2020 Pneumococcal Conjugate Vacc, 13 Valent (Prevnar) [...] encounter Miscellaneous Notes * Telephone Encounter - Arelis Valdovinos OSA - 12/15/2023 1:56 PM EST Patient is going to try medication first. If he is still having symptoms then will schedule upper endoscopy. Provider wants to see how medication works. documented in this encounter Plan of Treatment Upcoming Encounters Date Type Department Care Team (Late st Contact Info) Description 03/21/2024 8:40 AM EDT Office Visit Podiatry [facility] 132 [facility] [place] [address] Malathi Andres, HILARIA 400 [facility] [place] [address] 05/13/2024 3:20 PM EDT Office Visit Family Medicine [address] [place] [phone] Maria Teresa White MD [address] [place] [address] [place] [address] 06/13/2024 8:40 AM EDT Office Visit Dermatology [address] [place] [address] Katie Mckeon PA-C [address] [place] [address] [place] [address] Scheduled Procedures Name Priority Associated Diagnoses Date/Ti me COLONOSCOPY FLEXIBLE PROXIMA L DIAGNOSTIC Recall Encounter for screening colonoscopy Health Maintenance Due Date Last Done Comments Cologuard 1998 Sigmoidoscopy 1998 Fecal Occult Blood Test 08/13/2007 08/13/2006 COVID-19 Vaccine (24 season) 2023 09/02/2021, 01/08/2021, 12/18/2020 Depression Screening 05/12/2024 05/12/2023 GFR 05/12/2024 05/12/2023, 12/31, 12/18/2022, Additional history exists TSH 05/12/2024 05/12/2023, 0 04/2022, 02/01/2021, Additional history exists Albumin/Creatinine Ratio [...] filedocumented as of this encounter Care Teams Mold Construction Supervisor Relationship Specialty Start Date End Date Maria Teresa White MD [address] [place] [address] [place] [address] PCP - General Family Medicine 10/28/14 documented as of this encounter
--- OUTSIDE RECORDS SUMMARY | 2024-05-26 23:43 | External Medical Summary | Summary of Care ---
Author Name Unknown Organization [facility] Address [address] [facility] [place] [address] Phone [phone] Care Team Providers Care Anchor Tack Puller Name Role Phone Maria Teresa White MD Primary Care Provide r Reason for Visit * Reason Onset Date Comments Medication Refill 01/05/2024 Encounter Details Date Type Department Care Team (Late st Contact Info) Description 01/05/2024 Refill Family Medicine [address] [place] [address] Maria Teresa White MD [address] [place] [address] [place] [address] HTN, goal below 140/90 Allergies No known [...] the day. 30 Capsule 5 12/15/2023 Active Losartan Potassium 100 MG Oral Tablet [...] mRNA, LNP-s, No Pre serve, 2-Dose Series ([employer]) 09/02/2021,01/08/2021,12/18/2020 Pneumococcal Conjugate Vacc, 13 Valent (Prevnar) [...] encounter Miscellaneous Notes * Telephone Encounter - Talha Foote - 01/06/2024 6:11 AM ESTRefused Prescriptions: Disp Refills Losartan Potassium 100 MG Oral Tablet (Coz*90 Tab*3 Sig: Take 1Tablet by mouth in the morning.Refused By: SARAH FOOTEeason for Refusal: Duplicate Request------- documented in this encounter Plan of Treatment Upcoming Encounters Date Type Department Care Team (Late st Contact Info) Description 03/21/2024 8:40 AM EDT Office Visit Podiatry [facility] 132 [facility] [place] [address] Malathi Andres, H[place]AR[place] [address] [place] [address] [place] [address] 05/13/2024 3:20 PM EDT Office Visit Family Medicine [address] [place] [phone] Maria Teresa White MD [address] [place] [address] [place] [address] 06/13/2024 8:40 AM EDT Office Visit Dermatology [address] [place] [address] Katie Mckeon PA-C [address] [place] [address] [place] [address] Scheduled Procedures Name Priority Associated Diagnoses Date/Ti me COLONOSCOPY FLEXIBLE PROXIMA L DIAGNOSTIC Recall Encounter for screening colonoscopy Health Maintenance Due Date Last Done Comments Cologuard 1998 Sigmoidoscopy 1998 Fecal Occult Blood Test 08/13/2007 08/13/2006 COVID-19 Vaccine ( season) 2023 09/02/2021, 01/08/2021, 12/18/2020 Depression Screening 05/12/2024 05/12/2023 GFR 05/12/2024 05/12/2023, 12/31, 12/18/2022, Additional history exists TSH 05/12/2024 05/12/2023, 060 04/2022, 02/01/2021, Additional history exists Albumin/Creatinine Ratio [...] of this encounter Visit Diagnoses Diagnosis HTN, goal below 140/90 Unspecified essential hypertension documented in this encounter Care Teams Anchor Tack Puller Relationship Specialty Start Date End Date Maria Teresa White MD [address] [place] [address] [place] [address] PCP - General Family Medicine 10/28/14 documented as of this encounter
--- OUTSIDE RECORDS SUMMARY | 2024-05-26 23:43 | External Medical Summary | Summary of Care ---
Author Name Unknown Organization [facility] Address [address] [facility] [place] [address] Phone [phone] Care Team Providers Care Specimen Boss Name Role Phone Maria Teresa White MD Primary Care Provide r Reason for Visit * Reason Comments Follow Up Callus care * Evaluate & Treat - Unlimited Visits (Within 10 days (routine)) - Authorized Specialty Diagnoses / Procedures Referred By Jordi guillermo Referred To Contact Podiatry Diagnoses Callus of foot Maria Teresa White MD [address] [place] [address] [place] [address] Referral ID Status Reason Start Date Expiration Date Visits Requested Visits Authorized [id number] Authorized Specialty Services Required 02/17/2024 [id number] Encounter Details Date Type Department Care Team (Late st Contact Info) Description 03/21/2024 8:40 AM EDT Office Visit Podiatry [facility] 132 [facility] [place] [address] Malathi Andres DPM 400 [facility] [place] [address] Pain in both feet*; Callus of foot; Ingrown toenail of left foot Allergies No known active allergiesdocumented as of this encounter (statuses as of 03/21/2024) Medications Medication Sig Dispensed Refills Start Date [...] the day. 90 Capsule 3 03/15/2024 Active documented as of this encounter (statuses as of 03/21/2024) Active Problems Problem Noted Date Diagnosed Date [...] as of this encounter (statuses as of 03/21/2024) Resolved Problems Problem Noted Date Diagnosed Date [...] as of this encounter (statuses as of 03/21/2024) Immunizations Name Administration Dates Next Due COVID-19 mRNA, LNP-s, No Pre serve, 2-Dose Series (Snapsheet) 09/02/2021,01/08/2021,12/18/2020 Pneumococcal Conjugate Vacc, 13 Valent (Prevnar) [...] this encounter Progress Notes * Malathi Andres, [place] - 03/21/2024 8:43 AM EDT Podiatry Established Note [facility] Name: Amauri Patel : 1955 Date: 03/21/2024 REASON FOR VISIT: callosities, ingrown toenail SUBJECTIVE: This patient is a 69 year old male who presents today for follow up of recurrent painful callosities to both feet. Paring seems to help. He notes pain to these areas. He also notes pain to the left great toenail and he suspects this is an ingrown toenail. Lastly, he inquires about boots/hunting boots. He has a hard time finding the right size. He did order some which have yet to arrive. Past Medical History: Diagnosis Date Aortic aneurysm [...] right plantar foot sub metatarsal head 2. Incurvation of the left great toenail medial > lateral. DIAGNOSTIC STUDIES: No new ASSESSMENT: 1. Pain in both feet 2. Callus of foot x 4 3. Ingrown toenail of left foot TA PLAN: Procedure: After prepping the area with alcohol and allowing to dry, the hyperkeratotic lesions to the plantarleft foot x 2 and plantar right foot x 2 were sharply pared of all hyperkeratotic skin. This was performed with a #15 blade. An electrical umbrella bur was used to reduce any remaining edges. Patienttolerated well and noted improvement following procedure. Procedure: After mild cleansing and drying of feet, toenails 1 trimmed to remove painful incurvated nail borders with sterile nail cutters. This was performed without incident. The patient tolerated well. I applied antibiotic ointment and dry bandage. Amauri is to contact me with any questions or concerns. Follow up: 3 months documented in this encounter Nursing Notes * Gema Willis LPN - 03/21/2024 8:27 AM EDT Pt presents for routine callus care, concerned he may have ingrown nails of bilateral great toenails, states L first toenail is 'tender'. documented in this encounter Plan of Treatment Upcoming Encounters Date Type Department Care Team (Late st Contact Info) Description 05/13/2024 3:20 PM EDT Office Visit Family Medicine [address] [place] [phone] Maria Teresa White MD [address] [place] [address] [place] [address] 06/06/2024 7:00 AM EDT Imaging Radiology [address] [place] [address] 06/13/2024 8:40 AM EDT Office Visit Dermatology [address] [place] [address] Katie Mckeon PA-C [address] [place] [address] [place] [address] 06/16/2024 3:00 PM EDT Telemedicine Cardiothoracic Surg [facility] [address] [place] [address] Stevie Mcallister MD [address] [place] [address] 06/22/2024 8:40 AM EDT Office Visit Podiatry [facility] 132 [facility] [place] [address] Malathi Andres, [place] [address] [place] [address] Scheduled Procedures Name Priority Associated Diagnoses Date/Ti [...] 12/18/2022, Additional history exists TSH 05/12/2024 05/12/2023, /0 04/2022, 02/01/2021, Additional history exists Albumin/Creatinine Ratio [...] as of this encounter Visit Diagnoses Diagnosis Pain in both feet- Primary Pain in limb Callus of foot Corns and callosities Ingrown toenail of left foot documented in this encounter Care Teams Specimen Boss Relationship Specialty Start Date End Date Maria Teresa White MD [address] [place] [address] [place] [address] PCP - General Family Medicine 10/28/14 documented as of this encounter
--- OUTSIDE RECORDS SUMMARY | 2024-05-26 23:43 | External Medical Summary | Summary of Care ---
Author Name Unknown Organization [facility] Address [address] [facility] [address] Phone [phone] Care Team Providers Care Production Worker Name Role Phone Maria Teresa White MD Primary Care Provide r Reason for Referral * Ancillary Services (Within 10 days (routine)) - Authorized Specialty Diagnoses / Procedures Referred By Jordi guillermo Referred To Contact Gastroenterology Diagnoses Dysphagia, unspecified type Rima Dewitt PA-C [address] [place] [address] [place] [id number] Referral ID Status Reason Start Date Expiration Date Visits Requested Visits Authorized [id number] Authorized Ancillary Services Required 12/15/2023 999 999 Question Answer Referral Priority Within 10 days (routine) Where should this appointment be scheduled? [facility] ASGE Guidelines Dysphagia or odynophagia ADDITIONAL INFORMATION 1. Is the patient on Coumadin? No 2. Is the patient on Pradaxa? No Reason for Visit * Reason Comments Acute Pt c/o noticed in e mornings throat has been sore when he swallows especially his multivitamin which is bigger, sometimes also when eating meals, one evening it was so bad he quit eating, other times he doesn't have any problems at all x 3 weeks, has not been sick, no fevers. Encounter Details Date Type Department Care Team ([facility] Contact Info) Description 12/15/2023 1:20 PM EST Office Visit Family Medicine [facility] [place] [place] [phone] Rima Dewitt PA-C [address] [place] [address] [place] [address] Dysphagia, unspecified type* Allergies No known active allergiesdocumented as of this encounter (statuses as of 12/15/2023) Medications Medication Sig Dispensed Refills Start Date [...] as of this encounter (statuses as of 12/15/2023) Active Problems Problem Noted Date Diagnosed Date [...] as of this encounter (statuses as of 12/15/2023) Resolved Problems Problem Noted Date Diagnosed Date [...] as of this encounter (statuses as of 12/15/2023) Immunizations Name Administration Dates Next Due COVID-19 mRNA, LNP-s, No Pre serve, 2-Dose Series (Decalog) 09/02/2021,01/08/2021,12/18/2020 Pneumococcal Conjugate Vacc, 13 Valent (Prevnar) [...] Sign Reading Time Taken Comments Blood Pressure 134/70 12/15/2023 1:40 PM EST Pulse 58 12/15/2023 1:40 PM EST Temperature 35.7 C (96.3 F) 12/15/2023 1:40 PM ES T Respiratory Rate - - Oxygen Saturation 98% 12/15/2023 1:40 PM EST Inhaled Oxygen Concentration - - Weight 71 kg (156 lb 9.6 oz) 12/15/2023 1:40 PM EST Height - - Body Mass Index 23.13 12/11/2022 8:11 AM EST documented in this encounter Progress Notes * Rima Dewitt PA-C - 12/15/2023 1:41 PM EST Chief Complaint Patient presents with Acute Pt c/o noticed in the mornings throat has been sore when he swallows especially his multivitamin which is bigger, sometimes also when eating meals, one evening it was so bad he quit eating, other times he doesn't have any problems at all x 3 weeks, has not been sick, no fevers. Pt here today with problems swallowing. Pt states that anytime he eats, he feels like it gets stuckin his throat. Pt denies nausea, vomiting, choking on food, fever, chills, sore throat, heartburn, bloating. He does have some belching. Pt denies chest pain, SOB, cough, URI Sx, post nasal drip. It doesn't matter what he eats. Sometimes he will take a large drink of water and he will get the same feeling. He occasionally gets pain in his throat, as well. Review of patient's allergies indicates: No Known Allergies Current Outpatient Medications Medication Sig Dispense Refill [...] Erectile Dysfunction. As directed. 90 Tablet 1 Atenolol-Chlorthalidone 50-25 MG Oral Tablet Take 1 Tablet by mouth in the morning. 90 Tablet 3 Losartan Potassium 100 MG Oral Tablet (Cozaar) Take 1 Tablet by mouth in the morning. 90 Tablet 3 Levothyroxine Sodium 88 MCG Oral Tablet (Levoxyl) take 1 tablet by mouth daily AT LEAST 30 MINUTES PRIOR TO BRERAKFAST OR OTHER MEDICINE 90 Tablet 3 No current facility-administered medications for this visit. Past Medical History: Diagnosis Date Aortic aneurysm (HCC) Dr. Darryl Londono BCC (basal cell carcinoma of skin) HTN, goal below 140/90 Hypothyroidism Social History Socioeconomic History Marital status: Single Spouse name: Not on file Number of children: Not on file Years of education: Not on file Highest education level: Not on file Occupational History Not on file Tobacco Use Smoking status: Former Types: Cigarettes Quit date: 01/28/1983 Years since quittin.9 Smokeless tobacco: Never Tobacco comments: 2 pk/yr for 15 years Vaping Use Vaping Use: Never used Substance and Sexual Activity Alcohol use: Yes [...] on file Housing Stability: Not on file O:Blood pressure 134/70, pulse 58, temperature 35.7 C (96.3 F), weight 71 kg (156 lb 9.6 oz), SpO2 98%. GENERAL: alert, healthy, and no distress NECK: supple, no adenopathy, no bruits, thyroid normal size, non-tender, without nodularity EYES: PERRLA, sclera clear OROPHARYNX: no exudate, no erythema, lips, buccal mucosa, and tongue normal, and mucous membranes are moist HEART: regular rate & rhythm, no murmur, and no gallops LUNGS: chest symmetric with normal AP diameter, no chest deformities noted, no chest wall tenderness, lungs clear to auscultation ABDOMEN: abdomen soft, non-tender, normal bowel sounds, and no masses or organomegaly A:Dysphagia, unspecified type (Primary) - UPPER ENDOSCOPY GI REFERRAL OP - Omeprazole 20 MG Oral Capsule Delayed Release (PriLOSEC); Take 1 Capsule by mouth in the morning.1 hour before the first meal of the day. Start above med. Will schedule EGD. Any questions/problems, please call. If anything changes, worsens, develops new sx, please call ANNMARIE. Follow Up: Return if symptoms worsen or fail to improve. Rima Dewitt PA-C documented in this encounter Plan of Treatment Upcoming Encounters Date Type Department Care Team (Late st Contact Info) Description 01/20/2024 8:40 AM EST Office Visit Podiatry [facility] [address] [place] [address] Malathi Andres, DPM [address] [facility] [place] [address] 05/13/2024 3:20 PM EDT Office Visit Family Medicine [address] [place] [phone] Maria Teresa White MD [address] [place] [address] [place] [address] 06/13/2024 8:40 AM EDT Office Visit Dermatology [address] [place] [address] Katie Mckeon PA-C [address] [place] [address] [place] [address] Scheduled Procedures Name Priority Associated Diagnoses Date/Ti me COLONOSCOPY FLEXIBLE PROXIMA L DIAGNOSTIC Recall Encounter for screening colonoscopy Scheduled Referrals Name Type Priority Associated Diagnoses Orde r Schedule UPPER ENDOSCOPY GI REFERRAL OP Referral Within 10 days (routine) Dysphagia, unspecified type Ordered: 12/15/2023 Health Maintenance Due Date Last Done Comments Cologuard 1998 Sigmoidoscopy 1998 Fecal Occult Blood Test 08/13/2007 08/13/2006 COVID-19 Vaccine ( season) 2023 09/02/2021, 01/08/2021, 12/18/2020 Depression Screening 05/12/2024 05/12/2023 GFR 05/12/2024 05/12/2023, 12/31, 12/18/2022, Additional history exists TSH 05/12/2024 05/12/2023, 0604/2022, 02/01/2021, Additional history exists Albumin/Creatinine Ratio 05/05/2025 05/05/2022 Colonoscopy 05/18/2027 05/18/2017, 04/30, 03/06/2014, Additional history exists Colorectal Cancer Screening 05/18/2027 Lipid Panel 05/12/2028 05/12/2023, 04/2022, 02/01/2021, Additional history exists DTaP,Tdap,and Td [...] as of this encounter Visit Diagnoses Diagnosis Dysphagia, unspecified type- Primary documented in this encounter Care Teams Production Worker Relationship Specialty Start Date End Date Maria Teresa White MD [address] [place] [address] [place] [address] PCP - General Family Medicine 10/28/14 documented as of this encounter
--- OUTSIDE RECORDS SUMMARY | 2024-05-26 23:43 | External Medical Summary | Summary of Care ---
Author Name Unknown Organization [facility] Address [address] [facility] [place] [address] Phone [phone] Care Team Providers Care Exit Booth Agent Name Role Phone Maria Teresa White MD Primary Care Provide r Reason for Visit * Reason Onset Date Comments Medication Refill 03/15/2024 Encounter Details Date Type Department Care Team (Late st Contact Info) Description 03/15/2024 Refill Family Medicine [address] [place] [phone] Maria Teresa White MD [address] [place] [address] [place] [address] Dysphagia, unspecified type Allergies No known active allergiesdocumented as of this encounter (statuses as of 03/15/2024) Medications Medication Sig Dispensed Refills Start Date End Date Status MULTIVITAMIN PO TABS daily 0 10/10/2005 Active ASPIRIN 81 MG PO TABS 1 TABLET DAILY 0 10/10/2005 Active VITAMIN C 500 MG PO TABS 1 TABLET DAILY 0 10/10/2005 Active VITAMIN E 400 UNIT PO TABS daily 0 10/10/2005 Active ibuprofen (MOTRIN) 200 MG Tablet Take 1 Tablet by mouth in the morning and 1 Tablet before bedtime. 0 Active triamcinolone acetonide (ARISTOCORT) 0.1 % ointmentIndications :Contact dermatitis, unspecified contact dermatitis type, unspecified trigger,Xerosis cutis Apply 2x daily to rash (or more if itchy) until resolved and then when flaring 80 g 0 03/30/2017 Active Vardenafil HCl 20 MG Oral TabletIndications:I mpotence of organic origin Take 1 Tablet by mouth daily as needed for Erectile Dysfunction. As directed. 90 Tablet 1 01/12/2023 Active Atenolol-Chlorthali done 50-25 MG Oral TabletIndications:H [...] the day. 90 Capsule 3 03/15/2024 Active Omeprazole 20 MG Oral Capsule Delayed Release (PriLOSEC)Indicatio ns:Dysphagia, unspecified type Take 1 Capsule by mouth in the morning. 1 hour before the first meal of the day. 30 Capsule 5 12/15/2023 4 Discontinue d(Refill) documented as of this encounter (statuses as of 03/15/2024) Active Problems Problem Noted Date Diagnosed Date [...] as of this encounter (statuses as of 03/15/2024) Resolved Problems Problem Noted Date Diagnosed Date [...] as of this encounter (statuses as of 03/15/2024) Immunizations Name Administration Dates Next Due COVID-19 [...] Encounter - Maria Teresa White MD - 03/15/2024 4:17 PM EDT Signed Prescriptions: Disp Refills Omeprazole 20 MG Oral Capsule Delayed Rele*90 Cap*3 Sig: Take 1 Capsule by mouth in the morning. 1 hour before the first meal of the day. Authorizing Provider: MARIA TERESA WHITE * Telephone Encounter - Ly Quevedo RN - 03/15/2024 4:14 PM EDT Pharmacy asking for 90 day supply documented in this encounter Plan of Treatment Upcoming Encounters Date Type Department Care Team (Late st Contact Info) Description 03/21/2024 8:40 AM EDT Office Visit Podiatry [address] [place] [address] Malathi Andres, HILARIA [facility] [place] [address] 05/13/2024 3:20 PM EDT Office Visit Family Medicine [address] [place] [phone] Maria Teresa [place] MD [address] [place] [address] [place] [address] 06/06/2024 7:00 AM EDT Imaging Radiology [facility] [place] [address] [facility] [place] [address] 06/13/2024 8:40 AM EDT Office Visit Dermatology [address] [place] [address] Katie Mckeon PA-C [address] [place] [address] [place] [address] 06/16/2024 3:00 PM EDT Telemedicine Cardiothoracic Surg [facility] [address] [place] [address] Stevie Mcallister MD [address] [place] [address] Scheduled Procedures Name Priority Associated Diagnoses Date/Ti [...] Cancer Screening 05/18/2027 Lipid Panel 05/12/2028 05/12/2023, 0604/2022, 02/01/2021, Additional history exists DTaP,Tdap,and Td Vaccines [...] this encounter Visit Diagnoses Diagnosis Dysphagia, unspecified type documented in this encounter Care Teams Exit Booth Agent Relationship Specialty Start Date End Date Maria Teresa White MD [address] [place] [address] [place] [address] PCP - General Family Medicine 10/28/14 documented as of this encounter
--- OUTSIDE RECORDS SUMMARY | 2024-05-26 23:43 | External Medical Summary | Summary of Care ---
Author Name Unknown Organization [facility] Address [address] [place] [address] Phone [phone] Care Team Providers Care Principal Web Developer Name Role Phone Maria Teresa [place] MD Primary Care Provide r Reason for Visit * Reason Onset Date Comments Appointment 04/06/2024 Encounter Details Date Type Department Care Team (Late st Contact Info) Description 04/06/2024 Telephone Dermatology [address] [place] [address] Services, Scheduling [address] [place] [address] Appointment Allergies No known active allergiesdocumented as of this encounter (statuses as of 04/06/2024) Medications Medication Sig Dispensed Refills Start Date [...] as of this encounter (statuses as of 04/06/2024) Active Problems Problem Noted Date Diagnosed Date [...] as of this encounter (statuses as of 04/06/2024) Resolved Problems Problem Noted Date Diagnosed Date [...] as of this encounter (statuses as of 04/06/2024) Immunizations Name Administration Dates Next Due COVID-19 mRNA, LNP-s, No Pre serve, 2-Dose Series ([employer]) 09/02/2021,01/08/2021,12/18/2020 Pneumococcal Conjugate Vacc, 13 Valent (Prevnar) [...] encounter Miscellaneous Notes * Telephone Encounter - Maynor Domínguez OSA - 04/06/2024 10:57 AM EDT I spoke to pt. He agreed to appt * Telephone Encounter - Jody Pollock LPN - 04/06/2024 8:10 AM EDT Can offer Thursday at 10:40 AM * Telephone Encounter - Nisha Duran OSA - 04/06/2024 8:05 AM EDT Rishabh Pt was asked to come back for follow up with darius Wilson cancelled next available march 2025. Can someone assist? thanks documented in this encounter Plan of Treatment Upcoming Encounters Date Type Department Care Team (Late st Contact Info) Description 05/13/2024 3:20 PM EDT Office Visit Family Medicine [address] [place] [phone] Maria Teresa [place] MD [address] [place] [address] [place] [address] 05/25/2024 10:40 AM EDT Office Visit Dermatology [address] [place] [address] Katie Mckeon PA-C [address] [place] [address] [place] [address] 06/06/2024 7:00 AM EDT Imaging Radiology [address] [facility] [place] [address] 06/16/2024 3:00 PM EDT Telemedicine Cardiothoracic Surg [facility] [address] [place] [address] Stevie Mcallister MD [address] [place] [address] 06/22/2024 8:40 AM EDT Office Visit Podiatry [facility] [address] [facility] [place] [address] Malathi Andres DPM [address] [place] [address] Scheduled Procedures Name Priority Associated Diagnoses Date/Ti [...] filedocumented as of this encounter Care Teams Principal Web Developer Relationship Specialty Start Date End Date Maria Teresa [place] MD [address] [place] [address] [place] [phone] PCP - General Family Medicine 10/28/14 documented as of this encounter
[2024-05-27 02:02] LABS: Hematocrit (blood only) 34.1 % (42.0-52.0); Hemoglobin 12.7 g/dl (14.0-18.0); Mean Corpuscular Hemoglobin 31.9 pg (25.0-34.0); Mean Corpuscular Hgb Conc 37.2 g/dL (32.0-36.0); Mean Corpuscular Volume 85.7 fL (80.0-100.0); Mean Platelet Volume 8.8 fL (9.4-12.4); Platelet Count 186 K/uL (130-400); RDW Coefficient of Variation 11.5 % (11.5-14.5); RDW Standard Deviation 35.8 fL (36.4-46.3); Red Blood Count 3.98 M/uL (4.70-6.10); White Blood Count 7.21 K/ul (4.8-10.8)
[2024-05-27 02:22] LABS: BUN Creatinine Ratio 17.4 (10-20); Calcium 8.1 mg/dl (8.6-10.3); Creatinine Clr Calc Pharmacy 92.6 ml/min; Est GFR (African American) 110.7 ml/min; Est GFR (Non-African American) 95.5 ml/min; Magnesium 1.8 mg/dl (1.7-2.4); Potassium 4.2 mmol/L (3.5-5.1)
[2024-05-27] MEDS: PANTOprazole 40 MG TAB PO SCH (05:59)
[2024-05-27] MEDS: LEVOTHYROXINE SODIUM 88 MCG TABLET PO SCH (05:59)
--- NOTE | 2024-05-27 08:53 | Hospitalist Progress Note ---
Date of Service May 27, 2024 Assessment & Plan (1) Acute hyponatremia: (2) Hypomagnesemia: (3) Left lumbar radiculopathy: (4) Hypertension: (5) Bradycardia: Plan Pt is a 69 year old male with PMHx significant for HTN, hypothyroidism, GERD who presented to the ED for evaluation of left back pain radiating to left lower extremity but was admitted with concern for hyponatremia. Hyponatremia Sodium of 122 on admission Serum osm of 257, urine osm of 649 and urine sodium of 47 Nephrology consulted, appreciate recs -Holding home chlorthalidone -continue IV fluids WITH po lasix 20mg daily -limit NSAID use -treat pain and nausea which are potential causes -q6h sodium Possibly due to pain as well in setting of lower back pain Continue IV fluids, lasix Pain control, antiemetics Continue to monitor with AM labs Hypomagnesemia Replete as needed Left lumbar radiculopathy No cauda equina symptoms/red flag signs Lumbar spine XR did not show acute changes Improved with medications in ED Currently on lidoderm patch, voltaren gel, heat pad, oxycodone and toradol prn PT/OT evaluation MRI spine, Left hip Continue to monitor Bradycardia EKG sinus with PVCs, HR 64 at that time Did not take atenolol on admission and HR in 50s Continue to hold atenolol and monitor on telemetry Echo ordered in setting of PVCs, bradycardia and slight elevation of BNP Resume as able Anemia Hgb drop from 14.4 to 12.7 Likely hemoconcentrated on arrival Anemia panel if persistent Monitor with AM labs Hyperglycemia Glucose levels elevated AM [id number] pending HTN continue losartan Holding chlorthalidone due to hyponatremia Holding atenolol due to bradycardia Hypothyroidism continue Synthroid Recent TSH 4, T4 normal Alcohol use Drinks 3-4 keystone beer light daily. Declines withdrawal symptoms Monitor Diet: Regular at this time DVT ppx- sc lovenox Dispo- PT/OT ordered for further recs Admission and Anticipated Discharge Date Admission Date: May 26, 2024 Subjective Pt stated that pain was well controlled at time of exam. States that pain is more in left hip area. Denied nausea Review of Systems Review of Systems: All systems reviewed & are unremarkable except as noted in Subjective Physical Exam Physical Exam: General: Alert, oriented. No acute distress Skin: No noted rashes or bruises Psych: Appropriate mood and affect Neuro: No gross deficits at the time of exam HEENT: NC/AT Chest: Nontender to palpation. CV: RRR, Normal s1, s2. No murmurs appreciated Resp: Breath sounds clear bilaterally, no increased effort of breathing. No crac kles/rhonchi/rales. Abdomen: Soft, nontender, nondistended. Extremities: No edema in lower extremities bilaterally. Results & Data Results & Data Vital Signs (Past 12 Hours) Vital Signs Temp Pulse Pulse Resp BP Pulse Ox O2 Del Method 05/27/24 07:26 36.6 C 66 18 126/66 98 Room Air 05/27/24 02:49 36.4 C L 55 L 16 122/71 96 Room Air 05/27/24 00:00 76 05/26/24 23:21 36.5 C 54 L 16 138/79 96 Room Air
[2024-05-27] MEDS: ENOXAPARIN INJ 40 MG/0.4 ML SYR SQ SCH (09:24)
[2024-05-27] MEDS: ATENOLOL 25 MG TABLET PO SCH (10:09)
--- NOTE | 2024-05-27 11:11 | Nephrology Consultation ---
Date of Consultation May 27, 2024 Assessment & Plan (1) Acute hyponatremia: Multifactorial -2/ chlorthalidone / NSAID use / Etoh ,nausea from pain are non osmotic stimulus for ADH , this may be contributing as well. -Serum osm of 257, urine osm of 649 and urine sodium of 47, Difficult to interpret as she was on Diuretic. - Continue to hold chlorthalidone,and continue to present rate of IV fluids. - Limit ketorolac , as NSAID can cause Hyponatremia - Target- 130 until 4.00 am - q6 sodium. - start of furosemide 20 mg daily. - Control pain and nausea. - (2) Hypertension: (3) Bradycardia: History of Present Illness Attending Physician: Mary Molina MD History of Present Illness 69 year old male p/w Left back pain, radiating to the L Lower extremity.He took NSAIDS with no relief. Work up showed sodium of 122. His last BMP 05/12 showed sodium of 133, He admitted to drinking 3-4 light beers daily. Hemodynamically stable , passing urine,He was on chlorthalidone for HTN. Ocassional nausea which has improved. Allergies Allergy/AdvReac Type Severity Reaction Status Date / Time No Known Allergies Allergy Unverified 05/26/24 10:50 Home Medications Medication Instructions Recorded Confirmed Type ascorbic acid (vitamin C) 500 mg 500 mg PO DAILY 05/26/24 05/26/24 History tablet (Vitamin C) aspirin 81 mg tablet,delayed 81 mg PO DAILY 05/26/24 05/26/24 History release atenolol 50 mg-chlorthalidone 25 1 tab PO QAM 05/26/24 05/26/24 History mg tablet levothyroxine 88 mcg tablet 88 mcg PO DAILYBB 05/26/24 05/26/24 History losartan 100 mg tablet 100 mg PO QAM 05/26/24 05/26/24 History multivitamin 1 tab PO DAILY 05/26/24 05/26/24 History omeprazole 20 mg capsule,delayed 20 mg PO DAILYBB 05/26/24 05/26/24 History release vitamin E 268 mg (400 unit) capsule 268 mg PO DAILY 05/26/24 05/26/24 History Patient History Medical History No significant past medical history Surgical History No significant past surgical history Social History Smoking Status: Former smoker Hx Alcohol Use: Yes Alcohol type: beer Hx Substance Use: No Preferred Language: Bhutanese Communication Ability: Effective Strapping Machine Tender Required: No marital status: Current Living Situation: Alone current occupational status: retired Feels Safe at Home: Yes Safety Concerns: Feels Safe At This Time Assistive Devices: None and Glasses Review of Systems 2 Review of Systems: All systems reviewed & are unremarkable except as noted in HPI & below Physical Exam 2 Physical Exam: General: Sitting comfortably in bed, not in distress, on room air HEENT: EOMI, HANS, MMM Chest: Clear breath sounds bilaterally, no wheezes or crackles CVS: Bradycardic, normal heart sounds, no murmur Abdomen: Soft, non tender, not distended, normal bowel sounds Neuro: Awake, alert, oriented, conversing well, grossly intact Extremities: No cyanosis, clubbing or edema MSK: No tenderness on palpation of back, some tenderness in left buttock Results & Data Vital Signs (Past 12 Hours) Vital Signs Temp Pulse Pulse Resp BP Pulse Ox O2 Del Method 05/27/24 07:45 57 L 05/27/24 07:45 Room Air 05/27/24 07:26 36.6 C 66 18 126/66 98 Room Air 05/27/24 02:49 36.4 C L 55 L 16 122/71 96 Room Air 05/27/24 00:00 76 05/26/24 23:21 36.5 C 54 L 16 138/79 96 Room Air Laboratory Results 05/27/24 01:46 05/27/24 04:32
--- NOTE | 2024-05-27 13:27 | Magnetic Resonance Report ---
MR lumbar spine wo con CLINICAL HISTORY: lower back pain TECHNIQUE: Multiplanar sequences through the lumbar spine were obtained, without intravenous contrast . Comparison: Comparison is made to lumbar spine radiographs 05/26/2024 FINDINGS: The alignment is anatomical. L1-L2: No significant abnormality. L2-L3: No significant abnormality. L3-L4: Broad-based posterior disc bulge is seen with moderate canal stenosis, AP diameter 6 mm, and s evere right and moderate left neural foraminal stenosis. L4-L5: Broad-based posterior disc bulge is seen with moderate bilateral neuroforaminal stenosis. L5-S1: Broad-based posterior disc bulge is seen with moderate and mild left neuroforaminal stenosis. The spinal ligaments are intact, without evidence of disruption or abnormal signal intensity. The spi nal cord is normal in signal intensity and there is no evidence of cord contusion. There is no eviden ce of an extradural, intradural, extramedullary or intramedullary lesion. Visualized soft tissues are normal. IMPRESSION: Multilevel degenerative changes with up to moderate canal stenosis, AP diameter 6 mm, and severe righ t and moderate left neuroforaminal stenosis. ACT 112: Negative or not required by law. Electronically signed by: James Lamar M.D. 05/27/2024 1:25 PM
[2024-05-27] MEDS: ACETAMINOPHEN 1,000 MG/100 ML VIAL IV SCH (14:59)
[2024-05-27] MEDS ORDERED: ONDANSETRON INJ 2 MG/ML 2 ML VIAL IV PRN (17:34)
[2024-05-27] MEDS ORDERED: POLYETHYLENE (MIRALAX) 17 GM PACK PO PRN (17:42)
[2024-05-27] MEDS: FUROSEMIDE 20 MG TAB PO SCH (21:24)
[2024-05-27] MEDS: CALCIUM CARBONATE 500 MG CHEWABLE TAB PO PRN (21:30)
[2024-05-27] MEDS: DEXTROSE 5% 1,000 ML IV SCH (21:31)
[2024-05-28 05:54] LABS: Hematocrit (blood only) 32.2 % (42.0-52.0); Hemoglobin 11.7 g/dl (14.0-18.0); Mean Corpuscular Hemoglobin 31.5 pg (25.0-34.0); Mean Corpuscular Hgb Conc 36.3 g/dL (32.0-36.0); Mean Corpuscular Volume 86.6 fL (80.0-100.0); Mean Platelet Volume 9.1 fL (9.4-12.4); Platelet Count 144 K/uL (130-400); RDW Standard Deviation 38.3 fL (36.4-46.3); Red Blood Count 3.72 M/uL (4.70-6.10); White Blood Count 6.77 K/ul (4.8-10.8)
[2024-05-28 06:23] LABS: BUN Creatinine Ratio 15.4 (10-20); Calcium 8.2 mg/dl (8.6-10.3); Creatinine Clr Calc Pharmacy 101.3 ml/min; Est GFR (African American) 113.4 ml/min; Est GFR (Non-African American) 97.9 ml/min; Magnesium 1.7 mg/dl (1.7-2.4); Phosphorus 2.1 mg/dl (2.5-4.9); Potassium 3.7 mmol/L (3.5-5.1)
[2024-05-28 08:38] LABS: Estimated Average Glucose 117 mg/dl; Hemoglobin A1C 5.7 % (4.5-5.6)
[2024-05-28] MEDS ORDERED: POTASSIUM PHOS 3 MMOL/1 ML INFUSION IV STA (10:22)
[2024-05-28] MEDS: POTASSIUM PHOSPHATE 21 MMOL in SODIUM CHLORIDE 0.9% 500 ML IV ONE (10:59)
--- NOTE | 2024-05-28 11:04 | Nephrology Progress Note ---
Date of Service May 28, 2024 Assessment & Plan (1) Acute hyponatremia: Plan: Multifactorial. Sodium uptrending appropriately at 130 today. -2/ chlorthalidone / NSAID use / Etoh ,nausea from pain are non osmotic stimulus for ADH , this may be contributing as well. -Serum osm of 257, urine osm of 649 and urine sodium of 47, Difficult to interpret as she was on Diuretic. -Stop IV fluids. -Avoid ketorolac , as NSAID can cause Hyponatremia - AM sodium. - start Furosemide 20 mg twice daily starting this afternoon. - Control pain and nausea. -Potassium chloride 20 meq daily starting tomorrow (2) Hypertension: Plan: Blood pressure is slightly above target. Will stop atenolol due to bradycardia. We are starting Lasix 20 mg bid. If blood pressure still not controlled we may have to add amlodipine 5 mg daily. (3) Bradycardia: Admission and Anticipated Discharge Date Admission Date: May 26, 2024 Subjective Seen for hyponatremia and hypertension. He feels better today. Main complaint is left hip pain. Sodium up to 130 Review of Systems 2 Review of Systems: All other systems were reviewed and negative except as noted in HPI Physical Exam 2 Physical Exam: General exam: Appears comfortable, no acute distress HEENT: Pupils are equal and reactive to light Neck: No JVD, neck is supple trachea is midline Respiratory system: Clear breath sounds bilaterally. Gastrointestinal: Abdomen is soft, non distended, non tender, bowel sounds are present CVS: Regular rate and rhythm. No murmurs, rubs or gallops Musculoskeletal: No joint or muscle tenderness Extremities: Non tender, no edema, peripheral pulses are present Neuro: Oriented, no tremors, no focal neurological deficits Skin: No rashes Results & Data Vital Signs (Past 12 Hours) Vital Signs Temp Pulse Pulse Resp BP Pulse Ox O2 Del Method 05/28/24 08:00 Room Air 05/28/24 07:57 36.6 C 47 L 14 144/74 H 95 Room Air 05/28/24 07:00 43 L 05/28/24 02:45 36.5 C 50 L 19 150/74 H 96 Room Air 05/28/24 00:00 72 Laboratory Results 05/28/24 05:18 05/28/24 05:18 WBC 6.77 RBC 3.72 L MCV 86.6 MCH 31.5 MCHC 36.3 H RDW Std Deviation 38.3 RDW Coeff of Rajesh 12.0 Plt Count 144 MPV 9.1 L Phosphorus 2.1 L D
--- NOTE | 2024-05-28 13:37 | Hospitalist Progress Note ---
Date of Service May 28, 2024 Assessment & Plan (1) Acute hyponatremia: (2) Hypomagnesemia: (3) Left lumbar radiculopathy: (4) Hypertension: (5) Bradycardia: Plan Pt is a 69 year old male with PMHx significant for HTN, hypothyroidism, GERD who presented to the ED for evaluation of left back pain radiating to left lower extremity but was admitted with concern for hyponatremia. Hyponatremia Sodium of 122 on admission Serum osm of 257, urine osm of 649 and urine sodium of 47 Nephrology consulted, appreciate recs -Holding home chlorthalidone -continue IV fluids WITH po lasix 20mg daily -limit NSAID use -treat pain and nausea which are potential causes -q6h sodium Possibly due to pain as well in setting of lower back pain Continue IV fluids, lasix Pain control, antiemetics Continue to monitor with AM labs 05/28- Nephrology stopped IV fluids, made po lasix BID Hypomagnesemia Replete as needed Left lumbar radiculopathy No cauda equina symptoms/red flag signs Lumbar spine XR did not show acute changes Improved with medications in ED Currently on lidoderm patch, voltaren gel, heat pad, oxycodone and toradol prn PT/OT evaluation MRI spine, Left hip ordered -MRI lumbar spine noting disc bulges, and ""multilevel degenerative changes with up to moderate canal stenosis, AP diameter 6 mm, and severe right and moderate left neuroforaminal stenosis." -Pt could not complete the left hip MRI Ortho spine consulted, appreciate recs Started on gabapentin 100mg TID Flexeril prn Continue to monitor Bradycardia EKG sinus with PVCs, HR 64 at that time Did not take atenolol on admission and HR in 50s Continue to hold atenolol and monitor on telemetry Echo ordered in setting of PVCs, bradycardia and slight elevation of BNP Persistent bradycardia and PVCs, cardiology consulted for further recs Anemia Hgb drop from 14.4 to 11.7 Likely hemoconcentrated on arrival 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 Declines withdrawal symptoms Monitor Diet: Regular at this time DVT ppx- sc lovenox Dispo- PT/OT ordered for further recs Admission and Anticipated Discharge Date Admission Date: May 26, 2024 Subjective Pt was seen in the AM. States pain was controlled at the time. Declining to complete the hip MRI Awaiting spine consult Review of Systems Review of Systems: All systems reviewed & are unremarkable except as noted in Subjective Physical Exam Physical Exam: General: Alert, oriented. No acute distress Skin: No noted rashes or bruises Psych: Appropriate mood and affect Neuro: No gross deficits at the time of exam HEENT: NC/AT Chest: Nontender to palpation. CV: RRR Resp: Breath sounds clear bilaterally, no increased effort of breathing Abdomen: Soft, nontender, nondistended. Extremities: No edema in lower extremities bilaterally. Results & Data Results & Data Vital Signs (Past 12 Hours) Vital Signs Temp Pulse Pulse Resp BP Pulse Ox O2 Del Method 05/28/24 11:04 36.7 C 78 16 124/65 94 Room Air 05/28/24 08:00 Room Air 05/28/24 07:57 36.6 C 47 L 14 144/74 H 95 Room Air 05/28/24 07:00 43 L 05/28/24 02:45 36.5 C 50 L 19 150/74 H 96 Room Air Diagnostic Findings Lumbar Spine X-Ray 05/26/24 09:33 LUMBAR SPINE 5 VIEWS CLINICAL HISTORY: Lumbar radiculopathy. FINDINGS: 5 views of the lumbar spine are obtained. No prior studies are available for comparison at the time of dictation. The skeletal structures are osteopenic. There is no radiographic evidence of fracture or malalignment. Vertebral body height and alignment are maintained. The transverse and spinous processes are intact. Anterior and lateral marginal osteophytes are seen throughout. There is no radiographic evidence of spondylolysis. There is moderate disc space narrowing at L5-S1. The remaining disc spaces appear maintained. Mild facet arthropathy is noted in the lower lumbar region. The visualized bony pelvis appears intact. There is a nonobstructed abdominal bowel gas pattern. Moderate fecal retention is seen throughout the colon. IMPRESSION: No acute bony abnormality is identified involving the lumbar spine. ACT 112: Negative or not required by law. Electronically signed by: Liang Au M.D. 05/26/2024 10:54 AM Chest X-Ray 05/26/24 10:26 XR chest 2V PA/lateral CLINICAL HISTORY: Hyponatremia TECHNIQUE: 2 views of the chest were obtained. Comparison: None available at the time of this dictation. FINDINGS: No lines and tubes are seen. The cardiomediastinal silhouette is normal. The lungs are clear. No evidence of pleural effusion or pneumothorax. IMPRESSION: No acute chest disease. ACT 112: Negative or not required by law. Electronically signed by: James Lamar M.D. 05/26/2024 10:54 AM Lumbar Spine MRI 05/27/24 09:17 MR lumbar spine wo con CLINICAL HISTORY: lower back pain TECHNIQUE: Multiplanar sequences through the lumbar spine were obtained, without intravenous contrast. Comparison: Comparison is made to lumbar spine radiographs 05/26/2024 FINDINGS: The alignment is anatomical. L1-L2: No significant abnormality. L2-L3: No significant abnormality. L3-L4: Broad-based posterior disc bulge is seen with moderate canal stenosis, AP diameter 6 mm, and severe right and moderate left neural foraminal stenosis. L4-L5: Broad-based posterior disc bulge is seen with moderate bilateral neuroforaminal stenosis. L5-S1: Broad-based posterior disc bulge is seen with moderate and mild left neuroforaminal stenosis. The spinal ligaments are intact, without evidence of disruption or abnormal signal intensity. The spinal cord is normal in signal intensity and there is no evidence of cord contusion. There is no evidence of an extradural, intradural, extramedullary or intramedullary lesion. Visualized soft tissues are normal. IMPRESSION: Multilevel degenerative changes with up to moderate canal stenosis, AP diameter 6 mm, and severe right and moderate left neuroforaminal stenosis. ACT 112: Negative or not required by law. Electronically signed by: James Lamar M.D. 05/27/2024 1:25 PM
[2024-05-28] MEDS ORDERED: LORazepam 1 MG in SYRINGE 0.5 ML IV PRN (16:57)
[2024-05-28] MEDS: FUROSEMIDE 20 MG TAB PO SCH (16:58)
--- NOTE | 2024-05-28 19:22 | Electrocardiogram Report ---
Test Reason : Blood Pressure : / mmHG Vent. Rate : 049 BPM Atrial Rate : 049 BPM P-R Int : 158 ms QRS Dur : 100 ms QT Int : 464 ms P-R-T Axes : 072 069 051 degrees QTc Int : 419 ms Sinus bradycardia Otherwise normal ECG When compared with ECG of 26-MAY-2024 10:45, Premature ventricular complexes are no longer Present Confirmed by Meng Orantes ([id number]) on 05/28/2024 7:21:59 PM Referred By: Stephan Connell Confirmed By:Meng Orantes
[2024-05-28] MEDS: CYCLOBENZAPRINE HCL 5 MG TAB PO PRN (20:54)
[2024-05-28] MEDS: GABAPENTIN 100 MG CAP PO SCH (20:55)
[2024-05-29 06:18] LABS: Hematocrit (blood only) 33.7 % (42.0-52.0); Hemoglobin 12.2 g/dl (14.0-18.0); Mean Corpuscular Hemoglobin 31.8 pg (25.0-34.0); Mean Corpuscular Hgb Conc 36.2 g/dL (32.0-36.0); Mean Corpuscular Volume 87.8 fL (80.0-100.0); Mean Platelet Volume 8.8 fL (9.4-12.4); Platelet Count 153 K/uL (130-400); RDW Coefficient of Variation 12.1 % (11.5-14.5); RDW Standard Deviation 39.1 fL (36.4-46.3); Red Blood Count 3.84 M/uL (4.70-6.10); White Blood Count 5.02 K/ul (4.8-10.8)
[2024-05-29 06:33] LABS: BUN Creatinine Ratio 16.9 (10-20); Calcium 8.4 mg/dl (8.6-10.3); Creatinine Clr Calc Pharmacy 101.4 ml/min; Est GFR (African American) 113.4 ml/min; Est GFR (Non-African American) 97.9 ml/min; Magnesium 1.7 mg/dl (1.7-2.4); Phosphorus 2.8 mg/dl (2.5-4.9); Potassium 3.8 mmol/L (3.5-5.1)
[2024-05-29 06:53] LABS: Ferritin 485.8 ng/ml (8-388)
[2024-05-29 06:57] LABS: Folate (Folic Acid),Ser orPlas 19.73 ng/ml (>5.38)
--- NOTE | 2024-05-29 08:48 | Cardiology Consultation ---
Date of Consultation May 29, 2024 Assessment & Plan (1) Bradycardia: (2) Frequent PVCs: (3) Aortic root dilation: (4) Hypertension: Plan 69-year-old male with asymptomatic sinus bradycardia. Increase frequency of PVCs noted with discontinuation of atenolol. Recommend addition of Toprol-XL 25 mg daily with hold parameter for heart rate less than 50 bpm. Continue telemetry monitoring. Amlodipine and furosemide added by nephrology to improve blood pressure control. Continue low-dose aspirin. Stable, mild aortic root dilatation per echocardiogram. Follow-up with cardiothoracic surgery with CT chest as outpatient. No further cardiac testing or intervention recommended at this time. History of Present Illness Reason for Consultation: Bradycardia Requesting Physician: Dr. Molina Attending Physician: Mary Molina MD History of Present Illness 69-year-old male presented to the emergency department 05/26/2024 due to left hip discomfort. Treated at home with ibuprofen and tramadol without relief. Patient also reporting chronic back pain and following with chiropractor. Pain rated 9/10 on admission. Cardiology consultation requested due to sinus bradycardia. Review of [facility] medical record demonstrates ECG dating back to 2011 with sinus bradycardia, heart rate 50 bpm. Chronically treated with atenolol 50 mg daily as outpatient. Patient received 25 mg of oral atenolol 05/24/2020 4 in the AM. Atenolol held yesterday and today. Feeling well from a cardiovascular perspective. Denies lightheadedness, dizziness, syncope, or near syncope. Denies palpitations, chest discomfort, or unusual shortness of breath. Continues to note left hip discomfort. No orthopnea, PND, or lower extremity edema. Blood pressure mildly elevated in the setting of hip discomfort. Telemetry demonstrates increased frequency of PVCs this morning although patient remains asymptomatic. Allergies Allergy/AdvReac Type Severity Reaction Status Date / Time No Known Allergies Allergy Unverified 05/26/24 10:50 Home Medications Medication Instructions Recorded Confirmed Type ascorbic acid (vitamin C) 500 mg 500 mg PO DAILY 05/26/24 05/26/24 History tablet (Vitamin C) aspirin 81 mg tablet,delayed 81 mg PO DAILY 05/26/24 05/26/24 History release atenolol 50 mg-chlorthalidone 25 1 tab PO QAM 05/26/24 05/26/24 History mg tablet levothyroxine 88 mcg tablet 88 mcg PO DAILYBB 05/26/24 05/26/24 History losartan 100 mg tablet 100 mg PO QAM 05/26/24 05/26/24 History multivitamin 1 tab PO DAILY 05/26/24 05/26/24 History omeprazole 20 mg capsule,delayed 20 mg PO DAILYBB 05/26/24 05/26/24 History release vitamin E 268 mg (400 unit) capsule 268 mg PO DAILY 05/26/24 05/26/24 History Patient History Medical History No significant past medical history Surgical History No significant past surgical history Social History Smoking Status: Former smoker Hx Alcohol Use: Yes Alcohol type: beer Hx Substance Use: No Preferred Language: Turkish Communication Ability: Effective Habilitation Training Specialist Required: No marital status: Current Living Situation: Alone current occupational status: retired Feels Safe at Home: Yes Safety Concerns: Feels Safe At This Time Assistive Devices: None Review of Systems Review of Systems: All systems reviewed & are unremarkable except as noted in Subjective Physical Exam Constitutional: well nourished; no acute distress Respiratory: + respiratory distress, + labored breath ing and + retractions Auscultation: no crackles, no rales, no rhonchi and no wheezes Cardiovascular: Rate/Rhythm: regular rate and regular rhythm Heart Sounds: normal S1 and normal S2; no murmur Vessels: radial pulses present; no JVD and no carotid bruit Extremities: no edema Gastrointestinal (Abdomen): Inspection/Auscultation: abdomen normal to inspection and normal bowel sounds; abdomen not distended Percussion/Palpation: abdomen nontender, no guarding and abdomen not rigid Neurologic: CN's II-XI intact bilaterally and moves all extremities; no focal motor deficits Psychiatric: A+Ox3, euthymic affect Results & Data Vital Signs (Past 12 Hours) Vital Signs Temp Pulse Pulse Resp BP Pulse Ox O2 Del Method 05/29/24 07:26 36.4 C L 52 L 16 183/77 H 94 Room Air 05/29/24 02:40 36.4 C L 51 L 18 151/90 H 96 Room Air 05/29/24 00:00 47 L 05/28/24 22:45 36.6 C 52 L 19 152/71 H 96 Room Air Laboratory Results CBC 05/29/24 Range/Units 05:26 WBC 5.02 (4.8-10.8) K/ul RBC 3.84 L (4.70-6.10) M/uL Hgb 12.2 L (14.0-18.0) g/dl Hct 33.7 L (42.0-52.0) % Plt Count 153 (130-400) K/uL Comprehensive Metabolic Panel 05/29/24 Range/Units 05:26 Sodium 134 L (136-145) mmol/L Potassium 3.8 (3.5-5.1) mmol/L Chloride 101 (98-107) mmol/L Carbon Dioxide 29 (21-32) mmol/L BUN 11 (6-23) mg/dl Creatinine 0.65 (0.6-1.4) mg/dl Glucose 91 (70-99(Fasting)) mg/dl Calcium 8.4 L (8.6-10.3) mg/dl Intake and Output 05/28/24 05/29/24 05/29/24 22:59 06:59 14:59 Intake Total 967 / 2647 100 / 2647 Balance 967 / 2647 100 / 2647 Intake: IV 607 / 1807 100 / 1807 Acetaminophen 1,000 mg In 100 100 / 300 100 / 300 ml @ 400 mls/hr IV Q8H [facility] Rx#: [id number] Potassium Phosphate 21 mmol In 507 / 507 Sodium Chloride 0.9% 500 ml @ 88 mls/hr IV [facility] Rx#: [id number] Oral 360 / 840 Other: # Unmeasured Voids 3 Weight 68.8 kg Weight Measurement Method Built in [facility] (4) Hypertension Hypertension type: primary hypertension Qualified Code(s): I10 - Essential (primary) hypertension
[2024-05-29] MEDS: POTASSIUM CHLORIDE CRTAB 20 MEQ TABCR PO SCH (08:53)
[2024-05-29] MEDS: amLODIPine BESYLATE 5 MG TAB PO SCH (10:01)
--- NOTE | 2024-05-29 10:21 | Nephrology Progress Note ---
Date of Service May 29, 2024 Assessment & Plan (1) Acute hyponatremia: Plan: Multifactorial. Sodium uptrending appropriately at 134 today. -2/ chlorthalidone / NSAID use / Etoh ,nausea from pain are non osmotic stimulus for ADH , this may be contributing as well. -Serum osm of 257, urine osm of 649 and urine sodium of 47, Difficult to interpret as she was on Diuretic. -Avoid ketorolac , as NSAID can cause Hyponatremia - AM sodium. - Continue Furosemide 20 mg twice daily. - Control pain and nausea. -Potassium chloride 20 meq daily (2) Hypertension: Plan: Blood pressure is above target. atenolol was stopped due to bradycardia. We are starting Amlodipine 5mg daily. Continue Lasix 20 mg bid and losartan. Patient can be discharged on this regimen with renal follow up in 1-2 weeks (3) Bradycardia: Plan: Improved after stopping atenolol Admission and Anticipated Discharge Date Admission Date: May 26, 2024 Subjective Seen for hyponatremia and hypertension. He continues to have left hip pain. Pain is worse on standing and radiates to the leg. Review of Systems 2 Review of Systems: All other systems were reviewed and negative except as noted in HPI Physical Exam 2 Physical Exam: General exam: Appears comfortable, no acute distress HEENT: Pupils are equal and reactive to light Neck: No JVD, neck is supple trachea is midline Respiratory system: Clear breath sounds bilaterally. Gastrointestinal: Abdomen is soft, non distended, non tender, bowel sounds are present CVS: Regular rate and rhythm. No murmurs, rubs or gallops Musculoskeletal: No joint or muscle tenderness Extremities: Non tender, no edema, peripheral pulses are present Neuro: Oriented, no tremors, no focal neurological deficits Skin: No rashes Results & Data Vital Signs (Past 12 Hours) Vital Signs Temp Pulse Pulse Resp BP Pulse Ox O2 Del Method 05/29/24 10:01 151/76 H 05/29/24 07:26 36.4 C L 52 L 16 183/77 H 94 Room Air 05/29/24 02:40 36.4 C L 51 L 18 151/90 H 96 Room Air 05/29/24 00:00 47 L 05/28/24 22:45 36.6 C 52 L 19 152/71 H 96 Room Air Laboratory Results 05/29/24 05:26 05/29/24 05:26 WBC 5.02 RBC 3.84 L MCV 87.8 MCH 31.8 MCHC 36.2 H RDW Std Deviation 39.1 RDW Coeff of Rajesh 12.1 Plt Count 153 MPV 8.8 L Phosphorus 2.8
--- NOTE | 2024-05-29 11:45 | Hospitalist Progress Note ---
Date of Service May 29, 2024 Assessment & Plan (1) Acute hyponatremia: (2) Hypomagnesemia: (3) Left lumbar radiculopathy: (4) Hypertension: (5) Bradycardia: Plan Pt is a 69 year old male with PMHx significant for HTN, hypothyroidism, GERD who presented to the ED for evaluation of left back pain radiating to left lower extremity but was admitted with concern for hyponatremia. Hyponatremia Sodium of 122 on admission Serum osm of 257, urine osm of 649 and urine sodium of 47 Nephrology consulted, appreciate recs. Stated/Recommended the following: -Multifactorial. Sodium uptrending appropriately -2/ chlorthalidone / NSAID use / Etoh ,nausea from pain are non osmotic stimulus for ADH , this may be contributing as well. -Serum osm of 257, urine osm of 649 and urine sodium of 47, Difficult to interpret as she was on Diuretic. -Avoid ketorolac , as NSAID can cause Hyponatremia - AM sodium. - Continue Furosemide 20 mg twice daily. - Control pain and nausea control. -Potassium chloride 20 meq daily Pain control, antiemetics Continue to monitor Lumbar radiculopathy Lumbar stenosis No cauda equina symptoms/red flag signs Lumbar spine XR did not show acute changes MRI spine, Left hip ordered -MRI lumbar spine noting disc bulges, and ""multilevel degenerative changes with up to moderate canal stenosis, AP diameter 6 mm, and severe right and moderate left neuroforaminal stenosis." -Pt could not complete the left hip MRI Ortho spine consulted, appreciate recs Currently on lidoderm patch, voltaren gel, heat pad, oxycodone prn Started on gabapentin 100mg TID, titrated to 300mg TID Flexeril 5mg BID prn Consider addition of steroids Continue to monitor Bradycardia EKG noting sinus rhythm with PVCs, HR 64 at that time Did not take atenolol on admission and HR in 50s Continue to hold atenolol and monitor on telemetry Echo ordered in setting of PVCs, bradycardia and slight elevation of BNP -EF 60-65%, mild LVH, no pulm HTN, mild aoritic root dilation (4.3cm), Grade II diastolic dysfunction Due to persistent bradycardia and PVCs, cardiology consulted for further recs, appreciated. Cardiology stated/recommended the following: -asymptomatic sinus bradycardia -Increase frequency of PVCs noted with discontinuation of atenolol -Recommend addition of Toprol-XL 25 mg daily with hold parameter for heart rate less than 50 bpm -Continue telemetry monitoring -Amlodipine and furosemide added by nephrology to improve blood pressure control -Continue low-dose aspirin -No further cardiac testing or intervention recommended at this time. Aortic Root Dilatation noted on echo (4.3cm) Cardiology on board, recommended the following: -Stable, mild aortic root dilatation per echocardiogram -Follow-up with cardiothoracic surgery with CT chest as outpatient. Outpt cardiothoracic surgery followup HTN continue losartan Holding chlorthalidone due to hyponatremia Holding atenolol due to bradycardia Nephrology on board, appreciate recs. Stated/Recommended the following: -Blood pressure is above target. -atenolol was stopped due to bradycardia. -We are starting Amlodipine 5mg daily. -Continue Lasix 20 mg bid and losartan. -Patient can be discharged on this regimen with renal follow up in 1-2 weeks Continue to monitor Hypomagnesemia Replete as needed Anemia Hgb drop from 14.4 to 11.7 Likely hemoconcentrated on arrival Anemia panel with normal iron, B12 and folate levels Monitor H/H with AM labs Prediabetes Glucose levels elevated [id number] 5.7 PCP followup Hypothyroidism continue Synthroid Recent TSH 4, T4 normal Alcohol use Drinks 3-4 keystone beer light daily. Declines withdrawal symptoms Monitor Diet: HH DVT ppx- sc lovenox Dispo- PT/OT ordered for further recs Admission and Anticipated Discharge Date Admission Date: May 26, 2024 Subjective Pt was seen in the AM. States that pain minimally controlled with gabapentin 100 TID and PRN flexeril. Still needing the oxycodone orthospine coverage to resume tomorrow, agreeable to waiting for that Review of Systems Review of Systems: All systems reviewed & are unremarkable except as noted in Subjective Physical Exam Physical Exam: General: Alert, oriented. No acute distress Skin: No noted rashes or bruises Psych: Appropriate mood and affect Neuro: No gross deficits at the time of exam HEENT: NC/AT Chest: Nontender to palpation. CV: RRR Resp: Breath sounds clear bilaterally, no increased effort of breathing Abdomen: Soft, nontender, nondistended. Extremities: No edema in lower extremities bilaterally. Results & Data Results & Data Vital Signs (Past 12 Hours) Vital Signs Temp Pulse Pulse Resp BP BP Pulse Ox 05/29/24 11:34 36.7 C 58 L 16 131/76 95 05/29/24 10:01 151/76 H 05/29/24 07:26 36.4 C L 52 L 16 183/77 H 94 05/29/24 02:40 36.4 C L 51 L 18 151/90 H 96 05/29/24 00:00 47 L O2 Del Method 05/29/24 11:34 Room Air 05/29/24 10:01 05/29/24 07:26 Room Air 05/29/24 02:40 Room Air 05/29/24 00:00 Diagnostic Findings Lumbar Spine X-Ray 05/26/24 09:33 LUMBAR SPINE 5 VIEWS CLINICAL HISTORY: Lumbar radiculopathy. FINDINGS: 5 views of the lumbar spine are obtained. No prior studies are available for comparison at the time of dictation. The skeletal structures are osteopenic. There is no radiographic evidence of fracture or malalignment. Vertebral body height and alignment are maintained. The transverse and spinous processes are intact. Anterior and lateral marginal osteophytes are seen throughout. There is no radiographic evidence of spondylolysis. There is moderate disc space narrowing at L5-S1. The remaining disc spaces appear maintained. Mild facet arthropathy is noted in the lower lumbar region. The visualized bony pelvis appears intact. There is a nonobstructed abdominal bowel gas pattern. Moderate fecal retention is seen throughout the colon. IMPRESSION: No acute bony abnormality is identified involving the lumbar spine. ACT 112: Negative or not required by law. Electronically signed by: Liang Au M.D. 05/26/2024 10:54 AM Chest X-Ray 05/26/24 10:26 XR chest 2V PA/lateral CLINICAL HISTORY: Hyponatremia TECHNIQUE: 2 views of the chest were obtained. Comparison: None available at the time of this dictation. FINDINGS: No lines and tubes are seen. The cardiomediastinal silhouette is normal. The lungs are clear. No evidence of pleural effusion or pneumothorax. IMPRESSION: No acute chest disease. ACT 112: Negative or not required by law. Electronically signed by: James Lamar M.D. 05/26/2024 10:54 AM Lumbar Spine MRI 05/27/24 09:17 MR lumbar spine wo con CLINICAL HISTORY: lower back pain TECHNIQUE: Multiplanar sequences through the lumbar spine were obtained, without intravenous contrast. Comparison: Comparison is made to lumbar spine radiographs 05/26/2024 FINDINGS: The alignment is anatomical. L1-L2: No significant abnormality. L2-L3: No significant abnormality. L3-L4: Broad-based posterior disc bulge is seen with moderate canal stenosis, AP diameter 6 mm, and severe right and moderate left neural foraminal stenosis. L4-L5: Broad-based posterior disc bulge is seen with moderate bilateral neuroforaminal stenosis. L5-S1: Broad-based posterior disc bulge is seen with moderate and mild left neuroforaminal stenosis. The spinal ligaments are intact, without evidence of disruption or abnormal signal intensity. The spinal cord is normal in signal intensity and there is no evidence of cord contusion. There is no evidence of an extradural, intradural, extramedullary or intramedullary lesion. Visualized soft tissues are normal. IMPRESSION: Multilevel degenerative changes with up to moderate canal stenosis, AP diameter 6 mm, and severe right and moderate left neuroforaminal stenosis. ACT 112: Negative or not required by law. Electronically signed by: James Lamar M.D. 05/27/2024 1:25 PM (4) Hypertension Hypertension type: primary hypertension Qualified Code(s): I10 - Essential (primary) hypertension
[2024-05-29] MEDS: METOPROLOL SUCC 25MG EXT REL TAB PO SCH (12:37)
[2024-05-29] MEDS: GABAPENTIN 300 MG CAP PO SCH (15:54)
[2024-05-30 06:36] LABS: Hematocrit (blood only) 37.9 % (42.0-52.0); Hemoglobin 13.6 g/dl (14.0-18.0); Mean Corpuscular Hemoglobin 31.6 pg (25.0-34.0); Mean Corpuscular Hgb Conc 35.9 g/dL (32.0-36.0); Mean Corpuscular Volume 87.9 fL (80.0-100.0); Mean Platelet Volume 8.8 fL (9.4-12.4); Platelet Count 179 K/uL (130-400); RDW Standard Deviation 39.2 fL (36.4-46.3); Red Blood Count 4.31 M/uL (4.70-6.10); White Blood Count 6.29 K/ul (4.8-10.8)
[2024-05-30 10:28] LABS: Magnesium 1.7 mg/dl (1.7-2.4); Potassium 3.6 mmol/L (3.5-5.1)
[2024-05-30 10:33] LABS: BUN Creatinine Ratio 21.4 (10-20); Creatinine Clr Calc Pharmacy 91.5 ml/min; Est GFR (Non-African American) 94.9 ml/min; Phosphorus 3.5 mg/dl (2.5-4.9)
--- NOTE | 2024-05-30 10:58 | Nephrology Progress Note ---
Date of Service May 30, 2024 Assessment & Plan (1) Acute hyponatremia: Plan: Multifactorial. Sodium uptrending appropriately at 134 today. -2/2 chlorthalidone / NSAID use / EtOH ,nausea from pain are non osmotic stimulus for ADH , this may be contributing as well. -Serum osm of 257, urine osm of 649 and urine sodium of 47, Difficult to interpret as he was on Diuretic. - Avoid ketorolac , as NSAID can cause Hyponatremia - daily bmp while in house - Changed lasix to torsemide 40 mg daily d/t HTN - Control pain and nausea. -Potassium chloride 20 meq daily upped to 40 mEq BID >currently not on fluid limit; monitor for need; he tells me he's been limiting to about 1 L / day Will cont to follow while in house; for likely d/c home today NEPHRO D/C RECOMMENDATIONS -d/c on amlodipine, losartan, torsemide, K suppls current doses -very important pt avoid nsaids now and after d/c -bmp at pcp hosp f/u visit > may well need K adjustment -needs hospital d/c visit w/ neph any physician in [facility] or /and [place] 1-2 wks after d/c with bmp, serum osms, urine osms, urine electrolytes to be ordered by neph RN and drawn no more than 3 days before appt -asked pt to consider lower EtOH intake > precontemplative -recommend 1.5L fluid limit > no more than 50 oz daily at d/c Care coordinated w/ Dr Molina regarding d/c meds, f/u labs and appts, and FR. We are in agreement. (2) Hypertension: Plan: Blood pressure remains well above target. atenolol was stopped due to bradycardia. on 05/29 started Amlodipine 5mg daily. Continue 100 mg daily losartan. >concern w/ elevated BP and pt adherence for twice daily lasix >> changed to torsemide 40 mg daily >control pain and N per primary service >Patient can be discharged on this regimen with renal follow up in 1-2 weeks (3) Bradycardia: Plan: Improved after stopping atenolol Admission and Anticipated Discharge Date Admission Date: May 26, 2024 Subjective no n/v, no sob, no edema. ongoing pain L thigh, L sacral area > improved some w/ jefe. no gait issues. drinks 2-4 beers daily. no ohter uncontrolled pain Review of Systems 2 Review of Systems: All systems reviewed & are unremarkable except as noted in Subjective Physical Exam 2 Constitutional: well developed, well nourished, average body habitus and cooperative; no acute distress Eyes: EOM intact bilaterally ENMT: Ears: no external ear abnormality Nose: no external nose abnormality Mouth: + dry oral mucous membranes Neck: no nuchal rigidity Respiratory: normal respiratory effort Auscultation: + diminished lung sounds Cardiovascular: Rate/Rhythm: regular rhythm and + bradycardic Extremities: no edema Gastrointestinal (Abdomen): Inspection/Auscultation: normal bowel sounds P ercussion/Palpation: abdomen soft; abdomen nontender Musculoskeletal: Extremities: strength 5/5 throughout Skin: no rashes, warm and dry Neurologic: grimes, fluent speech, no tremor Psychiatric: Orientation: alert and oriented x 3 Speech: normal rate/rhythm/volume of speech Results & Data Vital Signs (Past 12 Hours) Vital Signs Temp Pulse Pulse Resp BP Pulse Ox O2 Del Method 05/30/24 07:37 58 L 05/30/24 07:21 36.7 C 53 L 20 183/87 H 97 Room Air 05/30/24 03:47 36.5 C 50 L 18 169/87 H 94 Room Air 05/29/24 23:58 49 L 05/29/24 22:49 36.6 C 54 L 19 166/91 H 96 Room Air Laboratory Results 05/30/24 05:40 05/30/24 05:39 (2) Hypertension Hypertension type: primary hypertension Qualified Code(s): I10 - Essential (primary) hypertension
--- NOTE | 2024-05-30 11:58 | Discharge Summary ---
Discharge Summary Date of Service May 30, 2024 Principal Dx & Hospital Course #1 = Principal Diagnosis (1) Acute hyponatremia: (2) Hypomagnesemia: (3) Left lumbar radiculopathy: (4) Hypertension: (5) Bradycardia: Plan Pt is a 69 year old male with PMHx significant for HTN, hypothyroidism, GERD who presented to the ED for evaluation of left back pain radiating to left lower extremity but was admitted with concern for hyponatremia. Hyponatremia Sodium of 122 on admission Serum osm of 257, urine osm of 649 and urine sodium of 47 Nephrology consulted, appreciate recs. Stated/Recommended the following: -Multifactorial. Sodium uptrending appropriately -2/ chlorthalidone / NSAID use / Etoh ,nausea from pain are non osmotic stimulus for ADH , this may be contributing as well. -Serum osm of 257, urine osm of 649 and urine sodium of 47, Difficult to interpret as she was on Diuretic. -Avoid ketorolac , as NSAID can cause Hyponatremia - Transitioned Furosemide 20 mg twice daily to torsemide 40mg daily on discharge with KCl 40mEq BID - Control pain and nausea control. -Potassium chloride 40 meq BID Pain control, antiemetics Per Nephrology discharge recommendations on 05/30 -bmp at pcp hosp f/u visit > may well need K adjustment -needs hospital d/c visit w/ neph any physician in [facility] [place] or /and [facility] 1-2 wks after d/c with bmp, serum osms, urine osms, urine electrolytes to be ordered by neph RN and drawn no more than 3 days before appt -asked pt to consider lower EtOH intake > precontemplative -recommend 1.5L fluid limit > no more than 50 oz daily at d/c PCP and nephrology followup after discharge Lumbar radiculopathy Lumbar stenosis No cauda equina symptoms/red flag signs Lumbar spine XR did not show acute changes MRI spine, Left hip ordered -MRI lumbar spine noting disc bulges, and ""multilevel degenerative changes with up to moderate canal stenosis, AP diameter 6 mm, and severe right and moderate left neuroforaminal stenosis." -Pt could not complete the left hip MRI Ortho spine consulted, appreciate recs -will f/u with pt in office on 06/02 Currently on lidoderm patch, voltaren gel, heat pad, oxycodone prn Started on gabapentin 100mg TID, titrated to 300mg TID Flexeril 5mg BID prn Consider addition of steroids Discharged with gabapentin 300mg TID with PRN Flexeril 5mg TID (advisd to avoid use with heavy machinery) and PRN oxycodone 5mg BID Ortho spine followup after discharge Bradycardia EKG noting sinus rhythm with PVCs, HR 64 at that time Did not take atenolol on admission and HR in 50s Continue to hold atenolol and monitor on telemetry Echo ordered in setting of PVCs, bradycardia and slight elevation of BNP -EF 60-65%, mild LVH, no pulm HTN, mild aortic root dilation (4.3cm), Grade II diastolic dysfunction Due to persistent bradycardia and PVCs, cardiology consulted for further recs, appreciated. Cardiology stated/recommended the following: -asymptomatic sinus bradycardia -Increase frequency of PVCs noted with discontinuation of atenolol -Recommend addition of Toprol-XL 25 mg daily with hold parameter for heart rate less than 50 bpm -Continue telemetry monitoring -Amlodipine and furosemide added by nephrology to improve blood pressure control (Lasix was transitioned to torsemide on discharge by nephrology) -Continue low-dose aspirin -No further cardiac testing or intervention recommended at this time. Per Cardiology on day of discharge 05/30, discharge with Torpol XL 25mg daily Close cardiology followup after discharge Aortic Root Dilatation noted on echo (4.3cm) Cardiology on board, recommended the following: -Stable, mild aortic root dilatation per echocardiogram -Follow-up with cardiothoracic surgery with CT chest as outpatient. Outpt cardiothoracic surgery followup HTN continue losartan Holding chlorthalidone due to hyponatremia Holding atenolol due to bradycardia Nephrology on board, appreciate recs. Stated/Recommended the following: -Blood pressure is above target. -atenolol was stopped due to bradycardia. -We are starting Amlodipine 5mg daily. -Continue torsemide 40mg daily and losartan. -Patient can be discharged on this regimen with renal follow up in 1-2 weeks Nephrology followup after discharge Hypomagnesemia Repleted as needed Anemia Hgb drop from 14.4 to 11.7 Hgb 13.6 on discharge Likely hemoconcentrated on arrival Anemia panel with normal iron, B12 and folate levels Stable Prediabetes Glucose levels elevated [id number] 5.7 PCP followup Hypothyroidism continue Synthroid Recent TSH 4, T4 normal Alcohol use Drinks 3-4 keystone beer light daily. Declines withdrawal symptoms Encourage alcohol cessation Notes For Next Care Provider Please ensure followup with the orthopedic spine surgeon Dr Mccracken as scheduled on 06/02/24 NEPHRO D/C RECOMMENDATIONS per Dr Nat Woo -d/c on amlodipine, losartan, torsemide, K suppls current doses -very important pt avoid nsaids now and after d/c -bmp at pcp hosp f/u visit > may well need K adjustment -needs hospital d/c visit w/ neph any physician in [facility] [place] or [facility]and [place] 1-2 wks after d/c with bmp, serum osms, urine osms, urine electrolytes to be ordered by neph RN and drawn no more than 3 days before appt -asked pt to consider lower EtOH intake > precontemplative -recommend 1.5L fluid limit > no more than 50 oz daily at d/c Per Cardiology: keep close followup with cardiothoracic surgery for the dilation of aorta root Please ensure close followup with Nephrology, Cardiology, cardiothoracic surgery and orthopedic spine surgery. Encourage alcohol cessation Medication Changes From Visit For back pain: -gabapentin 300mg three times a day -Flexeril 5mg NEEDED for muscle spasm -oxycodone 5mg twice a day NEEDED for severe pain Per nephrology: - torsemide 40mg once a day -potassium 40mEQ BID supplement while on torsemide -amlodipine 5mg daily -continue home losartan medication -STOP TAKING CHLORTHALIDONE -STOP TAKING ATENOLOL MEDICATION -Followup with nephrology in 1-2 weeks after discharge Per Cardiology: -STOP ATENOLOL -take metoprolol succinate 25mg daily instead -continue low dose aspirin Admission HPI Per Admitting Provider 69 year old male with h/o HTN who presented to the ED for evaluation of left back pain radiating to left lower extremity. 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 This time pain started on Thursday and progressively got worse. He saw his chiropractor yesterday, initially felt better and got worse again. He took ibuprofen 400 mg and 800 mg followed by tramadol 50 mg x2 since then but no relief with pain. He had nausea and an episode of vomiting yesterday due to p ain. He came to the ED for evaluation. He was given multiple pain medications in ED with improvement in pain. Work up showed sodium of 122 for which hospitalist service was consulted. His last BMP 05/12 showed sodium of 133 and TSH of 4. Currently denies N/V, fever, chills, chest pain, SOB. He feels fine. States he drinks 3-4 light beers daily but strongly denies alcohol withdrawal symptoms. Quit smoking 4 years back. Admission Exam Per Admitting Provider General: Sitting comfortably in bed, not in distress, on room air HEENT: EOMI, HANS, MMM Chest: Clear breath sounds bilaterally, no wheezes or crackles CVS: Bradycardic, normal heart sounds, no murmur Abdomen: Soft, non tender, not distended, normal bowel sounds Neuro: Awake, alert, oriented, conversing well, grossly intact Extremities: No cyanosis, clubbing or edema MSK: No tenderness on palpation of back, some tenderness in left buttock Discharge Exam General: Alert, oriented. No acute distress Skin: No noted rashes or bruises Psych: Appropriate mood and affect Neuro: No gross deficits at the time of exam, strength 5/5 bilaterally, difficulty getting up from sitting position but no abnormal gait HEENT: NC/AT Chest: Nontender to palpation. CV: RRR Resp: Breath sounds clear bilaterally, no increased effort of breathing Abdomen: Soft, nontender, nondistended. Extremities: No edema in lower extremities bilaterally. Updated Medication List Medication Instructions Recorded Confirmed Type ascorbic acid (vitamin C) 500 mg 500 mg PO DAILY 05/26/24 05/26/24 History tablet (Vitamin C) aspirin 81 mg tablet,delayed 81 mg PO DAILY 05/26/24 05/26/24 History release levothyroxine 88 mcg tablet 88 mcg PO DAILYBB 05/26/24 05/26/24 History losartan 100 mg tablet 100 mg PO QAM 05/26/24 05/26/24 History multivitamin 1 tab PO DAILY 05/26/24 05/26/24 History omeprazole 20 mg capsule,delayed 20 mg PO DAILYBB 05/26/24 05/26/24 History release vitamin E 268 mg (400 unit) capsule 268 mg PO DAILY 05/26/24 05/26/24 History amlodipine 5 mg tablet (Norvasc) 5 mg PO QAM #30 tabs 05/29/24 Rx metoprolol succinate 25 mg 25 mg PO QAM #30 tabs 05/29/24 Rx tablet,extended release 24 hr cyclobenzaprine 5 mg tablet 5 mg PO TID PRN muscle spasm #60 05/30/24 Rx tabs gabapentin 300 mg capsule 300 mg PO TID #90 caps 05/30/24 Rx oxycodone 5 mg tablet 5 mg PO BID PRN severe pain (scale 05/30/24 Rx score 7-10) #6 tabs potassium chloride 20 mEq 40 meq (2 x 20 mEq) PO BID #60 tabs 05/30/24 Rx tablet,extended release(part/cryst) torsemide 20 mg tablet 40 mg (2 x 20 mg) PO QAM #60 tabs 05/30/24 Rx Hospital Stay Data Consultations 05/26/24 11:02 ED Decision to Admit Stat 05/27/24 08:52 Consult Nephrology Routine 05/28/24 11:54 Consult Cardiology Routine 05/30/24 10:22 Consult Orthopedic Spine Surgery Routine Diagnostic Imagining Performed 05/27/24 09:17 MR lumbar spine wo con Routine Lumbar Spine X-Ray 05/26/24 09:33 LUMBAR SPINE 5 VIEWS CLINICAL HISTORY: Lumbar radiculopathy. FINDINGS: 5 views of the lumbar spine are obtained. No prior studies are available for comparison at the time of dictation. The skeletal structures are osteopenic. There is no radiographic evidence of fracture or malalignment. Vertebral body height and alignment are maintained. The transverse and spinous processes are intact. Anterior and lateral marginal osteophytes are seen throughout. There is no radiographic evidence of spondylolysis. There is moderate disc space narrowing at L5-S1. The remaining disc spaces appear maintained. Mild facet arthropathy is noted in the lower lumbar region. The visu alized bony pelvis appears intact. There is a nonobstructed abdominal bowel gas pattern. Moderate fecal retention is seen throughout the colon. IMPRESSION: No acute bony abnormality is identified involving the lumbar spine. ACT 112: Negative or not required by law. Electronically signed by: Liang Au M.D. 05/26/2024 10:54 AM Chest X-Ray 05/26/24 10:26 XR chest 2V PA/lateral CLINICAL HISTORY: Hyponatremia TECHNIQUE: 2 views of the chest were obtained. Comparison: None available at the time of this dictation. FINDINGS: No lines and tubes are seen. The cardiomediastinal silhouette is normal. The lungs are clear. No evidence of pleural effusion or pneumothorax. IMPRESSION: No acute chest disease. ACT 112: Negative or not required by law. Electronically signed by: James Lamar M.D. 05/26/2024 10:54 AM Lumbar Spine MRI 05/27/24 09:17 MR lumbar spine wo con CLINICAL HISTORY: lower back pain TECHNIQUE: Multiplanar sequences through the lumbar spine were obtained, without intravenous contrast. Comparison: Comparison is made to lumbar spine radiographs 05/26/2024 FINDINGS: The alignment is anatomical. L1-L2: No significant abnormality. L2-L3: No significant abnormality. L3-L4: Broad-based posterior disc bulge is seen with moderate canal stenosis, AP diameter 6 mm, and severe right and moderate left neural foraminal stenosis. L4-L5: Broad-based posterior disc bulge is seen with moderate bilateral neuroforaminal stenosis. L5-S1: Broad-based posterior disc bulge is seen with moderate and mild left neuroforaminal stenosis. The spinal ligaments are intact, without evidence of disruption or abnormal signal intensity. The spinal cord is normal in signal intensity and there is no evidence of cord contusion. There is no evidence of an extradural, intradural, extramedullary or intramedullary lesion. Visualized soft tissues are normal. IMPRESSION: Multilevel degenerative changes with up to moderate canal stenosis, AP diameter 6 mm, and severe right and moderate left neuroforaminal stenosis. ACT 112: Negative or not required by law. Electronically signed by: James Lamar M.D. 05/27/2024 1:25 PM Pending Results Patient Have Any Pending Studies at Discharge: No Discharge Instructions Given to Patient (Per Discharging Provider) Mr Patel, We are discharging you home. Please continue with the following pain medications after discharge: -gabapentin 300mg three times a day -Flexeril 5mg NEEDED for muscle spasm -oxycodone 5mg twice a day NEEDED for severe pain Please keep scheduled followup with the orhtopedic spine surgeon Dr Mccracken as scheduled on 06/02/24. You were seen by the rehab specialist for low sodium levels and for your blood pressure. They recommended the following for discharge: -continue with torsemide 40mg once a day -continue with a potassium supplement while on torsemide -continue with amlodipine 5mg daily for your blood pressure -continue with your home losartan medication -STOP TAKING YOUR HOME CHLORTHALIDONE MEDICATION -STOP TAKING YOUR HOME ATENOLOL MEDICATION -Followup with nephrology in 1-2 weeks after discharge You were seen by the sheather for your low heart rate and frequent extra heart beats. They recommended the following for discharge: -STOP TAKING YOUR HOME ATENOLOL MEDICATION -take the medication metoprolol succinate 25mg daily instead -keep close followup with your cardiothoracic surgeon for the dilation of your aorta at the root that was noted -continue your low dose aspirin Please keep close follow up with your primary care provider after discharge. Please also keep close followup with Nephrology, Cardiology, your cardiothoracic surgeon and orthopedic spine surgeon as noted above. Please do not hesitate to come back to the emergency room if your symptoms worsen or return. It was a pleasure taking care of you while you were here. Total Time Total Time Spent Total Time Spent (In Minutes): 75
--- NOTE | 2024-05-30 12:03 | Orthopedic Consultation ---
Date of Consultation May 30, 2024 Assessment & Plan (1) Left lumbar radiculopathy: Assessment left leg radiculopathy. Plan at this time he is going to be discharged secondary to some obligations at home. 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 I have discussed with him seeing us in the next few days in the office to thoroughly review his x-rays and MRI findings and make further recommendations. Patient restrained agrees with this plan. History of Present Illness Reason for Consultation: Back and left leg pain Attending Physician: Mary Molina MD History of Present Illness This is a 69-year-old male who presents with partially 1 week of significant left buttock left thigh pain quite limiting in nature. Has been working with a chiropractor for 4 to 5 years. This has not helped his current issue. He denies any specific trauma fall or event. Right lower extremity asymptomatic. He lives alone and is quite active regularly. His pain described involving left buttock posterior lateral upper thigh rating to the anterior thigh. It can extend below the knee. Standing and walking is debilitating. He gets relief with sitting. He notes no numbness or tingling at this time. Has no strength deficits. Allergies Allergy/AdvReac Type Severity Reaction Status Date / Time No Known Allergies Allergy Unverified 05/26/24 10:50 Home Medications Medication Instructions Recorded Confirmed Type ascorbic acid (vitamin C) 500 mg 500 mg PO DAILY 05/26/24 05/26/24 History tablet (Vitamin C) aspirin 81 mg tablet,delayed 81 mg PO DAILY 05/26/24 05/26/24 History release atenolol 50 mg-chlorthalidone 25 1 tab PO QAM 05/26/24 05/26/24 History mg tablet levothyroxine 88 mcg tablet 88 mcg PO DAILYBB 05/26/24 05/26/24 History losartan 100 mg tablet 100 mg PO QAM 05/26/24 05/26/24 History multivitamin 1 tab PO DAILY 05/26/24 05/26/24 History omeprazole 20 mg capsule,delayed 20 mg PO DAILYBB 05/26/24 05/26/24 History release vitamin E 268 mg (400 unit) capsule 268 mg PO DAILY 05/26/24 05/26/24 History amlodipine 5 mg tablet (Norvasc) 5 mg PO QAM #30 tabs 05/29/24 Rx furosemide 20 mg tablet 20 mg PO BID17 #60 tabs 05/29/24 Rx metoprolol succinate 25 mg 25 mg PO QAM #30 tabs 05/29/24 Rx tablet,extended release 24 hr potassium chloride 20 mEq 20 meq PO QAM #30 tabs 05/29/24 Rx tablet,extended release(part/cryst) Patient History Medical History No significant past medical history Surgical History No significant past surgical history Social History Smoking Status: Former smoker Hx Alcohol Use: Yes Alcohol type: beer Hx Substance Use: No Preferred Language: Kiswahili Communication Ability: Effective 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 He ambulates about the room with an antalgic gait protecting left lower extremities. Bench exam reveals no gross tension signs negative logroll. Sensory is symmetric and intact. There is +5 and 5 plantarflexion dorsiflexion quadriceps. Results & Data Vital Signs (Past 12 Hours) Vital Signs Temp Pulse Pulse Resp BP BP Pulse Ox 05/30/24 11:05 36.7 C 53 L 19 150/87 H 97 05/30/24 07:37 58 L 05/30/24 07:21 36.7 C 53 L 20 183/87 H 97 05/30/24 03:47 36.5 C 50 L 18 169/87 H 94 O2 Del Method 05/30/24 11:05 Room Air 05/30/24 07:37 05/30/24 07:21 Room Air 05/30/24 03:47 Room Air
[2024-05-30] MEDS: TORSEMIDE 20 MG TAB PO SCH (12:17)
[2024-05-30] MEDS: POTASSIUM CHLORIDE CRTAB 20 MEQ TABCR PO SCH (12:17)
--- NOTE | 2024-05-30 13:33 | Cardiology Progress Note ---
Date of Service May 30, 2024 Assessment & Plan (1) Bradycardia: (2) Frequent PVCs: (3) Aortic root dilation: (4) Hypertension: Plan 69-year-old male with asymptomatic sinus bradycardia and PVCs. Atenolol 50 mg daily discontinued. Continue Toprol-XL 25 mg daily. Added 05/29/2024. Amlodipine and furosemide added by nephrology to improve blood pressure control. Continue low-dose aspirin. Stable, mild aortic root dilatation per echocardiogram. Follow-up with cardiothoracic surgery with CT chest as outpatient. No further cardiac testing or intervention recommended at this time. Cardiology will sign off. Please call with additional concerns/questions. Routine outpatient cardiology follow-up in 4 to 6 weeks. Admission and Anticipated Discharge Date Admission Date: May 26, 2024 Subjective 69-year-old male seen and examined the bedside. Denies chest pain, palpitations, lightheadedness, or dizziness. Continues to note left hip disc omfort. Blood pressure mildly elevated. Reports well-controlled home blood pressure readings at home. Offers no concerns/complaints from a cardiovascular perspective. Telemetry reveals sinus bradycardia in the 40s to 60s with occasional PVCs. Tolerating low-dose Toprol-XL Review of Systems Review of Systems: All systems reviewed & are unremarkable except as noted in Subjective Physical Exam Constitutional: well nourished; no acute distress Respiratory: + respiratory distress, + labored breath ing and + retractions Auscultation: no crackles, no rales, no rhonchi and no wheezes Cardiovascular: Rate/Rhythm: regular rate and regular rhythm Heart Sounds: normal S1 and normal S2; no murmur Vessels: radial pulses present; no JVD and no carotid bruit Extremities: no edema Gastrointestinal (Abdomen): Inspection/Auscultation: abdomen normal to inspection and normal bowel sounds; abdomen not distended Percussion/Palpation: abdomen nontender, no guarding and abdomen not rigid Neurologic: CN's II-XI intact bilaterally and moves all extremities; no focal motor deficits Psychiatric: A+Ox3, euthymic affect Results & Data Vital Signs (Past 12 Hours) Vital Signs Temp Pulse Pulse Resp BP BP Pulse Ox 05/30/24 11:05 36.7 C 53 L 19 150/87 H 97 05/30/24 07:37 58 L 05/30/24 07:21 36.7 C 53 L 20 183/87 H 97 07/01/24 03:47 36.5 C 50 L 18 169/87 H 94 O2 Del Method 05/30/24 11:05 Room Air 05/30/24 07:37 05/30/24 07:21 Room Air 05/30/24 03:47 Room Air Laboratory Results CBC 05/30/24 Range/Units 05:40 WBC 6.29 (4.8-10.8) K/ul RBC 4.31 L (4.70-6.10) M/uL Hgb 13.6 L (14.0-18.0) g/dl Hct 37.9 L (42.0-52.0) % Plt Count 179 (130-400) K/uL Comprehensive Metabolic Panel 05/30/24 Range/Units 05:39 Sodium 134 L (136-145) mmol/L Potassium 3.6 (3.5-5.1) mmol/L Chloride 98 (98-107) mmol/L Carbon Dioxide 30 (21-32) mmol/L BUN 15 (6-23) mg/dl Creatinine 0.70 (0.6-1.4) mg/dl Glucose 86 (70-99(Fasting)) mg/dl Calcium 9.0 (8.6-10.3) mg/dl Intake and Output 05/29/24 05/30/24 05/30/24 22:59 06:59 14:59 Intake Total 450 / 1690 200 / 1690 Balance 450 / 1690 200 / 1690 Intake: IV 100 / 300 100 / 300 Acetaminophen 1,000 mg In 100 100 / 300 100 / 300 ml @ 400 mls/hr IV Q8H [facility] Rx#: [id number] Oral 350 / 1390 100 / 1390 Other: Weight 66.8 kg 66.8 kg Weight Measurement Method Built in [facility] Patient Weight 05/31/24 06:59 Weight 66.8 kg (4) Hypertension Hypertension type: primary hypertension Qualified Code(s): I10 - Essential (primary) hypertension
== END 2024-05-30 13:58 | disposition home or self-care (01) | DRG 641 ==
LOC: ED 08:54 → SUATTDRO 11:18 → EDINP 11:18 → 4W 13:35